=== PATIENT | female | born 1965 | race Caucasian/White ===

== ENCOUNTER 2025-05-10 11:40 | Outpatient (AMB) | payer OTHER, SELFPAY ==
--- NOTE | 2025-05-10 11:51 | A.OFFPC_ITS ---
Vital Signs 05/10/25 12:01 Height 5 ft 4 in Weight 173 lb BMI 29.7 BP 100/62 Blood Pressure Location Rt brachial Position Sitting Pulse 75 Pulse Source Pulse Oximeter Temp 98.2 F Temp Source Temporal Artery Scan Pulse Oximetry (%) 98 Oxygen Delivery Method Room Air Intake Visit Reasons: weak and tired easily/ pinch nerve in back Intake Note: Lissa presents in the office to establish care. Allergies No Known Allergies Allergy (Verified 05/10/25 11:56) Tobacco use date assessed: 05/10/25 Dental Screening Dental Screen Date: 05/10/25 Did you have a dental visit in the last 12 months?: No Did you have a dental problem in the last 6 months where you did not have access to dental care?: No Was dental information given to patient?: Patient has dentist HPI HPI Comments History of Present Illness Details This is a 59-year-old female with a past medical history of hypertension, hyperlipidemia, prior tobacco use and lumbar degenerative disc disease presenting to establish care. She has multiple concerns today. Her prior medical records have not been received yet. Degenerative disc disease-she had lower back surgery in July 2013 at . Symptoms improved, but she had persistent lower back pain that radiates to the left leg as well as intermittent numbness and tingling in her left leg. Her symptoms have been worse during the past 6 months. Average daily pain is 7/10. In the past she tried acupuncture, lower back injections and physical therapy. She is treating symptoms with soha-tua-glngtdy pain relievers like naproxen. Denies loss of bowel or bladder control or numbness or tingling in the groin. Sometimes left leg feels weak. She endorses left shoulder pain for 3-4 months. She has been doing physical therapy for the last couple months once a week. No improvement. It hurts to lift her arm above her shoulder. She does [employer], and she does not remember a particular injury or trauma. Endorses tension in her neck muscles. When she is lying down at night and holding her phone up her hands and forearms get tingly and she has to reposition. Patient says in general she feels fatigued, and she feels weaker. She gives the example of her arms feeling weak when she carries her groceries inside. She snores. She endorses non restorative sleep and daytime fatigue. Denies witnessed apneic episodes. She has never had a sleep study. She has a history of depression with anxiety. She is on venlafaxine. No alcohol use. Hypertension-treated with losartan 50 mg daily. Blood pressure is soft. Hyperlipidemia-treated with atorvastatin 40 mg daily. No recent dose adjustment. She reports seeing Cardiology a few years ago for an echo and stress test. She has a heart murmur. She believes the tests were okay. She quit smoking 12 years ago. She feels like she can not take a deep breath and she has tightness in her lungs/chest when she is exercising at [employer] (acquired by [employer] in 2014). Denies history of asthma or COPD. Denies chest pain, palpitations and pedal edema. ROS: Constitutional: No unexplained weight loss, fever, chills or night sweats. Eyes: No vision changes, blurry vision, double vision, eye pain Respiratory: No cough, wheezing, hemoptysis or sputum production. See HPI Cardiovascular: See HPI Gastrointestinal: No anorexia, nausea, vomiting or diarrhea. No abdominal pain or blood in stool. Genitourinary: No dysuria, hematuria, urinary frequency. Neurologic: No headache, dizziness, syncope, ataxia or seizures or tremors Musculoskeletal see HPI Hematologic/Lymphatics: No bleeding or bruising. No painful lymph nodes. Skin: No rash or tick bites Psychiatric: No SI/HI. Physical exam: Constitutional: Alert, in no distress. Head: Normocephalic. Neck: Supple, Full range of motion. No lymphadenopathy. No palpable thyroid masses. Respiratory: Clear to auscultation. Cardiovascular: S1 S2 regular. I/ murmur. Gastrointestinal: Abdomen soft, non-tender, non-distended. Normal bowel sounds. No palpable masses. Neurologic: No focal neurological deficits. Symmetric patellar reflexes. Moves all extremities spontaneously. Sensation intact bilaterally. Skin: No rashes or lesions. Musculoskeletal: Empty can maneuver is positive with the left shoulder. Shoulders are nontender to palpation. Abduction with the left shoulder causes pain in is limited,. Cervical spine lumbar spine are nontender to palpation. She has full range of motion of the spine. Negative straight leg raises bilaterally. Left lower extremity strength 4/5, right lower extremity strength 5/5. Extremities: Warm and well perfused. No clubbing, cyanosis or edema. Intact peripheral pulses bilaterally. Psychiatric: Normal mood and affect [facility] Medical History (Updated 05/10/25 @ 12:42 by TAJ Gill) Essential hypertension Hyperlipidemia Multiple joint pain Dyspnea Depression with anxiety Non-restorative sleep Fatigue Cervicalgia Lumbar radiculopathy Left shoulder pain Chest tightness Family History (Updated 05/10/25 @ 12:00 by Kelsey Fan MA) Brother Alcoholism Other Substance abuse Social History (Updated 05/10/25 @ 12:01 by Kelsey Fan MA) Housing: House Alcohol intake: current Patient Tobacco Use Status: Former Tobacco user Cigarette Packs Per Day: 1 Cigarettes Per Day: 10 Years Smoked: 12 e-Cigarette/Vaping Use: Never Used Second Hand Smoke Exposure: No service: No Current occupational status: employed Current occupation: [employer] Current occupational exposures/hazards: Yes Cognitive needs: No Hearing needs: No Vision needs: No Questionnaire PHQ-9 Over the last 2 weeks, how often have you been bothered by any of the following problems? 1. Little interest or pleasure in doing things: more than half the days 2. Feeling down, depressed, or hopeless: more than half the days 3. Trouble falling or staying asleep, or sleeping too much: more than half the days 4. Feeling tired or having little energy: more than half the days 5. Poor appetite or overeating: more than half the days 6. Feeling bad about yourself - or that you are a failure or have let yourself or your family down: more than half the days 7. Trouble concentrating on things, such as reading the newspaper or watching television: more than half the days 8. Moving or speaking so slowly that other people could have noticed. Or the opposite - being so fidgety or restless that you have been moving around a lot more than usual: not at all 9. Thoughts that you would be better off or of hurting yourself in some way: not at all Total score: 14 Depression Screening Interpretation: Positive Depression Screening Done: Yes 82761 - PHQ-9 Billing: Yes Source: Developed by Drs. Bc Hyatt, Tara Burch, Jack Dominguez and colleagues, with an educational bobbi from [employer]. Thrive Questionnaire Date Thrive assessed: 05/10/25 I am a: Patient What is your living situation today?: I have a steady place to live Within the past 12 months, did the food you bought not last and you didn't have the money to get more?: Never true Within the past 12 months, did you worry whether your food would run out before you got money to buy more?: Never true Do you have trouble paying for medicines?: No Do you have trouble getting transportation to medical appointments?: No Do you have trouble paying your heating and electricity bill?: No Do you have trouble taking care of your child, family member or friend?: No Do you have trouble with day-to-day activities such as bathing, preparing meals, shopping, managing finances, etc.?: No Are you currently unemployed and looking for a job?: No Are you interested in more education?: No Please select the resources that you would like help with: None Currently or been in a relationship where the following occur: No concerns reported THRIVE Score: 0 AUDIT C Alcohol Use Questionnaire (AUDIT-C) 1. How often do you have a drink containing alcohol?: Monthly or less 2. How many drinks containing alcohol do you have on a typical day when you are drinking?: 1 or 2 3. How often do you have six or more drinks on one occasion?: Never Total Score: 1 SOPHIA-7 AMB Questionnaire SOPHIA-7 Date SOPHIA - 7 assessed: 05/10/25 Feeling nervous, anxious, or on edge: 0 = Not at all Not being able to stop or control worryin = Several days Worrying too much about different things: 1 = Several days Trouble relaxin = Not at all Being so restless that it is hard to sit still: 0 = Not at all Becoming easily annoyed or irritable: 1 = Several days Feeling afraid as if something awful might happen: 1 = Several days Total SOPHIA-7 score (0-4 normal; 5-9 mild; 10-14 moderate; 15-21 severe): 4 Source: Developed by Drs. Bc Hyatt, Tara Burch, Jack Dominguez and colleagues, with an educational bobbi from [employer]. Physical exam (Primary Care) Vital Signs: Last Vital Signs Temp 98.2 F 05/10/25 12:01 Pulse 75 05/10/25 12:01 BP 100/62 05/10/25 12:01 Pulse Ox 98 05/10/25 12:01 Oxygen Delivery Method Room Air 05/10/25 12:01 BMI result Body Mass Index 29.7 Tobacco/Smoking Status: Tobacco use Status Tobacco use date assessed 05/10/25 05/10/25 12:07 Patient Tobacco Use Status Former Tobacco user 05/10/25 12:07 e-Cigarette/Vaping Use Never Used 05/10/25 12:07 PHQ-9: PHQ-9 Score PHQ-9: Total score 14 05/10/25 12:14 Depression Screening Interpretation: Positive Thrive Assessment: Date of Thrive Assessment Date Thrive assessed 05/10/25 05/10/25 11:53 Currently or been in a relationship where the following occur: No concerns reported Office Procedures EKG Details: EKG shows normal sinus rhythm, possible right bundle branch block, nonspecific ST abnormality, 68 beats per minute 83647-[id number], Complete Coding Level of Care Code New Pt Level 5 (57974) Complex EM visit Add On G2211 Diagnoses Chest tightness R07.89 Left shoulder pain M25.512 Lumbar radiculopathy M54.16 Cervicalgia M54.2 Fatigue R53.83 Non-restorative sleep G47.8 Depression with anxiety F41.8 Dyspnea R06.00 Multiple joint pain M25.50 Essential hypertension I10 CPT Codes EKG - CPT: 36356-[id number], Complete ([id number]) Additional Codes PHQ-9 - 57608 - PHQ-9 Billing: Yes ([id number]) Time Spent (min) 70 Comment Direct patient care, completing documentation, placing orders, updating chart Assessment & Plan Assessment & Plan (1) Chest tightness: Code(s): R07.89 - Other chest pain Category: Medical Plan: Request prior workup and notes from [facility]. She associates this with feeling like she can not take a deep breath while exercising. History of smoking. Proceed with PFT and trial of albuterol EKG with no acute ischemic findings. (2) Left shoulder pain: Code(s): M25.512 - Pain in left shoulder Category: Medical Plan: Left shoulder pain with positive empty can maneuver and weakness of the left shoulder. Proceed with x-ray and MRI for suspicion of rotator cuff tendinop athy. (3) Lumbar radiculopathy: Code(s): M54.16 - Radiculopathy, lumbar region Category: Medical Plan: Worsening radicular symptoms with history of lower back surgery in 2014. Ordered x-ray and MRI of the lumbar spine. (4) Cervicalgia: Code(s): M54.2 - Cervicalgia Category: Medical Plan: X-ray ordered. (5) Fatigue: Code(s): R53.83 - Other fatigue Category: Medical Plan: Check fatigue labs. Autoimmune labs ordered given multiple joint pains. (6) Non-restorative sleep: Code(s): G47.8 - Other sleep disorders Category: Medical Plan: Sleep study requested. (7) Depression with anxiety: Code(s): F41.8 - Other specified anxiety disorders Category: Medical Plan: Continue venlafaxine. Refer to Psychology. (8) Dyspnea: Code(s): R06.00 - Dyspnea, unspecified Category: Medical (9) Multiple joint pain: Code(s): M25.50 - Pain in unspecified joint Category: Medical Plan: Differential reviewed with the patient including polymyalgia rheumatica, osteoarthritis, rheumatoid arthritis, Lyme disease, vitamin-D deficiency. Check labs. (10) Essential hypertension: Code(s): I10 - Essential (primary) hypertension Category: Medical Plan: Reduce losartan to 25 mg daily. Plan Follow up in 4-6 weeks. Orders: Orders AMB EKG-In Office Today R07.89 - Other chest pain XR lumbar spine 2-3V Today E78.5 - Hyperlipidemia, unspecified, I10 - Essential (primary) hypertension, M25.50 - Pain in unspecified joint, M54.16 - Radiculopathy, lumbar region, R53.83 - Other fatigue XR cervical spine 4V Today E78.5 - Hyperlipidemia, unspecified, I10 - Essential (primary) hypertension, M25.50 - Pain in unspecified joint, M54.2 - Cervicalgia, R53.83 - Other fatigue MR lumbar spine wo con Today E78.5 - Hyperlipidemia, unspecified, I10 - Essential (primary) hypertension, M25.50 - Pain in unspecified joint, M54.16 - Radiculopathy, lumbar region, R53.83 - Other fatigue Vitamin D 25-OH (D2 and D3) Today E78.5 - Hyperlipidemia, unspecified, I10 - Essential (primary) hypertension, M25.50 - Pain in unspecified joint, M85.80 - Other specified disorders of bone density and structure, unspecified site, R53.83 - Other fatigue Lipid Panel Today E78.5 - Hyperlipidemia, unspecified, I10 - Essential (primary) hypertension, M25.50 - Pain in unspecified joint, R53.83 - Other fatigue Comprehensive Met. Panel Today E78.5 - Hyperlipidemia, unspecified, I10 - Essential (primary) hypertension, M25.50 - Pain in unspecified joint, R53.83 - Other fatigue Magnesium Today E78.5 - Hyperlipidemia, unspecified, I10 - Essential (primary) hypertension, M25.50 - Pain in unspecified joint, R53.83 - Other fatigue Complete Blood Count Auto Diff Today E78.5 - Hyperlipidemia, unspecified, I10 - Essential (primary) hypertension, M25.50 - Pain in unspecified joint, R53.83 - Other fatigue UA w Microscopic Today E78.5 - Hyperlipidemia, unspecified, I10 - Essential (primary) hypertension, M25.50 - Pain in unspecified joint, R39.9 - Unspecified symptoms and signs involving the genitourinary system, R53.83 - Other fatigue Rheumatoid Factor Today E78.5 - Hyperlipidemia, unspecified, I10 - Essential (primary) hypertension, M25.50 - Pain in unspecified joint, R53.83 - Other fatigue Creatine Kinase Total Today R53.83 - Other fatigue XR shoulder LT min 2V Today E78.5 - Hyperlipidemia, unspecified, I10 - Essential (primary) hypertension, M25.50 - Pain in unspecified joint, M25.512 - Pain in left shoulder, R53.83 - Other fatigue MR shoulder LT wo con Today E78.5 - Hyperlipidemia, unspecified, I10 - Essential (primary) hypertension, M25.50 - Pain in unspecified joint, M25.512 - Pain in left shoulder, R53.83 - Other fatigue RT home sleep study Today E78.5 - Hyperlipidemia, unspecified, G47.8 - Other sleep disorders, I10 - Essential (primary) hypertension, M25.50 - Pain in unspecified joint, R53.83 - Other fatigue PFT pulmonary function test Today E78.5 - Hyperlipidemia, unspecified, I10 - Essential (primary) hypertension, M25.50 - Pain in unspecified joint, R06.00 - Dyspnea, unspecified, R53.83 - Other fatigue TSH reflex Free T4 Today E78.5 - Hyperlipidemia, unspecified, I10 - Essential (primary) hypertension, M25.50 - Pain in unspecified joint, M25.512 - Pain in left shoulder, M54.16 - Radiculopathy, lumbar region, R53.83 - Other fatigue TAYE Reflex Titer and Pattern Today E78.5 - Hyperlipidemia, unspecified, I10 - Essential (primary) hypertension, M25.50 - Pain in unspecified joint, R53.83 - Other fatigue Erythrocyte Sedimentation Rate Today E78.5 - Hyperlipidemia, unspecified, I10 - Essential (primary) hypertension, M25.50 - Pain in unspecified joint, R53.83 - Other fatigue C Reactive Protein Today E78.5 - Hyperlipidemia, unspecified, I10 - Essential (primary) hypertension, M25.50 - Pain in unspecified joint, R53.83 - Other fatigue Lyme IgG/IgM w/reflex to WB Today E78.5 - Hyperlipidemia, unspecified, I10 - Essential (primary) hypertension, M25.50 - Pain in unspecified joint, R53.83 - Other fatigue Vitamin B12 Today E78.5 - Hyperlipidemia, unspecified, I10 - Essential (primary) hypertension, M25.50 - Pain in unspecified joint, R53.83 - Other fatigue, Z91.89 - Other specified personal risk factors, not elsewhere classified Referrals Psychology Referral E78.5 - Hyperlipidemia, unspecified, F41.8 - Other specified anxiety disorders, I10 - Essential (primary) hypertension, M25.50 - Pain in unspecified joint, R53.83 - Other fatigue Medications: New albuterol sulfate 90 mcg/actuation Two puffs every 4 hours as needed for shortness of breath and 15 minutes prior to vigorous activity 2 inhalations inhalation .every 4 hours PRN 8.5 grams 0RF shortness of breath or wheezing 30 days
[2025-05-10 12:01] VITALS: BP 100/62; PULSE 75; TEMP 36.8; O2SAT 98; BMI 29.7
--- OUTSIDE RECORDS SUMMARY | 2025-05-10 12:16 | XMS_ITS | Patient Health Record ---
Author Organization [facility] [address] Address [address] [place] [address] Care Team Providers Care Technology Lab Teacher Name Role Phone ABHILASH JOSUE Unavailable [phone] JOLANTA GRACE Unavailable [phone] Allergies No Known Allergies Reason For Referral No Information Medications Medication SIG (Take, Route, Frequency, Duration) Notes Start Date End Date Status Zepbound 2.5 MG/0.5ML 0.5 mL Subcutaneou s once weekly; Duration: 30 days 07/13/2024 Active Venlafaxine HCl ER 225 MG 1 capsule with food Orally Once a day Active Social History Tobacco Use: Social History Observation Description Date Details (start date - stop date) Never Smoker NA - NA Tobacco Use/Smoking Question Answer Notes Are you a nonsmoker Section Notes: 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 at [facility] Problems Problem Type SNOMED Code ICD Code Onset Dates Problem Status W/U Status Risk Notes Problem Obesity (710597483) Other obesity (E66.8) Active confirmed Problem Hyperlipidaemia (36927122) Hyperlipidemia, unspecified hyperlipidemia type (E78.5) Active confirmed Problem Essential hypertension (78517997) Hypertension, unspecified type (I10) Active confirmed Problem Obesity (069064821) Obesity (BMI 30-39.9) (E66.9) Active confirmed Problem Body mass index 30.00 to 34.99 (387699176910811) Body mass index [BMI] 33.0-33.9, adult (Z68.33) Active confirmed Problem Obese class I (996542017395801) BMI 33.0-33.9,adult (Z68.33) Active confirmed Problem Body mass index 30.00 to 34.99 (677228455399545) BMI 31.0-31.9,adult (Z68.31) Active confirmed Problem Body mass index 30+ - obesity (250818306) BMI 30.0-30.9,adult (Z68.30) Active confirmed Vital Signs Heart Rate 80 /min 07/13/2024 Blood pressure diastolic 82 mm Hg 07/13/2024 Oximetry 97 % 07/13/2024 Height 63 in 07/13/2024 Blood pressure systolic 134 mm Hg 07/13/2024 Weight 172.0 lbs 07/13/2024 BMI 30.47 kg/m2 07/13/2024 Encounters Encounter Location Date Provider Diagnosis [facility] [address] [place] [address] 05/31/2024 ABHILASH JOSUE Overweight E66.3 ; B PR 29.0-29.9,adult Z68.29 ; Hypertension, unspecified type I10 ; Hyperlipidemia, unspecified hyperlipidemia type E78.5 and Depression, unspecified depression type F32.A [facility] [address] [place] [address] 07/13/2024 JOLANTA GRACE Obesity (BMI 30-39.9 ) E66.9 ; BMI 30.0-30.9,adult Z68.30 ; Hypertension, unspecified type I10 and Hyperlipidemia, unspecified hyperlipidemia type E78.5 [facility] [address] [facility] [address] [place] [address] 05/10/2024 ABHILASH JOSUE [facility] [address] [facility] [address] [place] [address] 08/18/2024 ABHILASH JOSUE Assessments Encounter Date Diagnosis (ICD Code) Assessment Notes Treatment Notes Treatment Clinical Notes Section Notes 05/31/2024 Overweight (ICD-10 - E66.3) Ailyn Is a 57-year-old female who present the office for weight management f/u. : weight 188.6, BMI 33.41- extensively educated on diet, exercise. SECA reviewed, [facility] provided. Patient provided with educational handouts or guarding high-protein foods, low carbohydrate snacks, healthy fats, as well as a check sheet to focus on lifestyle modifications and logging food. Patient states that she does exercise pretty regularly. Educated on the importance of increasing her water intake. She has multiple factors regarding her diet that she can improve on, but will focus on 1-2 factors over the next two weeks, and follow-up fairly closely. Patient will work on decreasing her take-out consumption as she quite often eats out including pizza, grinders. Patient encouraged to increase her vegetable intake as well as focuss on limiting her danishes/muffins for breakfast and eat more protein for breakfast including eggs, grain toast with peanut butter/banana. Patient does not eat much protein throughout the day, and focuses most on carbohydrates. She does state that she has IBS, and that limits the consumption of multiple foods including vegetables, yogurt, egg whites. 03/11/23: weight 189.2, BMI 33.51- patient still struggling with lifestyle modifications. Has been improving decreasing carbohydrates for breakfast, but is still struggling to be consistent. Patient is eating a lot of carbohydrates, mac & cheese, pasta, Bellavita, cookies, swiss etc. Educated to increase colors in her diet, although patient's diet is very limited. She does present to the office of the lifts of food that she eats which contains approximately 30 foods with minimal fruit/minimal vegetables. Educated on the importance of trial and ear when it comes to foods. She is in the process of joining a [employer] gym, and working with her friend to experiment with different foods. 05/07/2023: Weight 183.3, BMI 32.47. Patient congratulated on efforts. Continues to lose consistent weight loss with lifestyle modifications, but is interested in weight management medications. Did discuss compounded semaglutide versus Saxenda versus Wegovy, she is interested in compounded semaglutide. We will start at 0.25 mg today, and she will follow-up every week for nursing visit, and I will see patient in the next 4 weeks. Did discuss proper use, and side effects of medication. 06/07/2023: Weight 179.2, BMI 31.74. Patient congratulated on effort. Has been continue to lose weight. Taking compounded semaglutide 0.25 mg with compliance. Is interested in increasing to 0.5 mg. Patient does endorse occasional nausea the day after she gets the injection, but it subsides. She also does state that she feels like she has more moodiness that used to be more controlled with her venlafaxine. We did have an extensive conversation regarding discontinuing semaglutide to see if that improves the moodiness but patient did not want to do this, and would prefer to contact her primary care provider on altering venlafaxine dose/switching medication etc. She declines any SI/HI but did educate extensively on return to office protocol/resources for patient to use. Continue to educate on the importance of lifestyle as patient is still eating out pretty consistently. Also discussed exercise that patient can tolerate as she is having some concern with left elbow pain. This is being followed up by PCP. 07/06/2023: Weight 178.4 pounds, BMI 31.6. Patient congratulated. Body composition reviewed showing only 1 pound loss, but patient has lost 3 pounds of fat, and gained 2 pounds of water weight. Encouraged to continue with high-protein, vegetables, and increasing water intake. Patient has goals to exercise with her friends that are holding her accountable over the next month, as well as go out and listen to some music live to bring more coco into her life. She is in the process of also establishing with psychiatry she is going to discuss this with her as well. 08/03/2023: Weight 175.6 pounds, BMI 31.1. Patient is lost few pounds since last visit, congratulated on effort. Overall, she is pleased. Taking semaglutide 0.5 mg with compliance, without any side effects. Would like to continue with 0.5 mg but is potentially interested in increasing to 1 mg at next visit. Educated on the importance of lifestyle. Patient has been spending more time with friends, and going to the gym with colleagues that are holding her accountable, and recently went to the [employer]. 09/13/23: Weight 173, BMI 30.66. SECA reviewed with patient - 3 lb fat loss, 1 lb muscle gain, 0.3 visceral fat loss. Patient has been on sema 1mg x 4 weeks without side effects. She reports her clothing fitting differently as well as reduction in appetite and snacking. She has been going to the gym or walking four times a week with friends/colleagues to hold her accountable. She was encouraged to increase her protein intake, incorporate more fruits and vegetables, drink more water. Recommended seeing a last sorter for help in incorporating more whole foods and improving her overall nutrition status, but the patient declines at this time, stating that won't change anything . Continue semaglutide 1mg weekly, follow up in 4 weeks. 11/03/2022: Weight 170, BMI 30.22. SECA reviewed with patient - 1 lb fat loss, 1 lb mucle loss, visceral fat loss. Patient has been on semaglutide 1mg x 10 weeks without side effects. She reports that her clothing is fitting her better with reduced snacking throughout the day. She has been participating in [employer] with friends at least two times per week. She has been working to increase her protein and water intake and is encouraged to continue doing so. Planning to continue semaglutide 1mg weekly and will follow up in 4 weeks. Submit for Wegovy 1 mg. 12/16/2023: Weight 168.7, BMI 29.88. Patient graduated on effort, body composition reviewed showing fat loss, muscle increase. Patient's very pleased with progress overall. Continue with Wegovy, will increase to 1.7 mg. Taking with compliance, no side effects. Patient is very pleased with progress, has been consistent with exercise, holding accountability with friends at the gym. 04/17/2024: Weight 165.0, BMI 29.23. Patient graduated on effort. Patient admits to being off Wegovy 1.7mg for 3 weeks - 1 month d/t being denied by insurance. Explained to patient that the prior authorization was sent on April 01 and the insurance company has 4 weeks to either confirm or deny the request. Body scan revealed predominantly fat mass loss with 1 pound of muscle mass loss. Patient is a little discouraged because she thought she lost more weight. Consider starting at 1 mg of Wegovy due to SE profile and not being on medication for 1 month. Will f/u in 4-6 weeks. 05/31/2024: Weight 167, BMI 29: Weight up 2 pounds since last visit, declines body scan, but will get next visit. States is a financial concern, did state that we can leave it for her if she needs. Could not get Wegovy due to her not losing enough weight on the medication, insurance denied it. Will trial Contrave. Educated on proper use, proper tapering, side effects. Provided with sample, sent to [facility]. Follow-up in 4 to 6 weeks. #Hypertension: blood pressure stable in office today. Patient states she is not taking losartan at this time. #Hyperlipidemia: patient should continue atorvastatin 40 mg #Depression: patient should continueVenlafaxine 150 mg Patient will follow-up in 4-6 weeks, sooner as needed. Time spent with patient 30 minutes with greater than 50% on care coordination and patient education. All patient questions answered in office today. Patient should call the office in the meantime with any questions or concerns. Case discussed with collaborating physician Mars Thompson who reviewed the assessment and plan. Chart, medications, labs, vital signs reviewed. Dictation was accomplished with the use of [employer] voice recognition software, prone to medical misidentifications and grammatical errors. This is unintentional and the practitioner does try to identify and correct these, but some could still be present. Please do not hesitate to contact practitioner for clarification. 07/13/2024 Obesity (BMI 30-39.9) (ICD-10 - E66.9) Ailyn Is a 57-year-old female who present the office for weight management f/u. : weight 188.6, BMI 33.41- extensively educated on diet, exercise. SECA reviewed, [facility] provided. Patient provided with educational handouts or guarding high-protein foods, low carbohydrate snacks, healthy fats, as well as a check sheet to focus on lifestyle modifications and logging food. Patient states that she does exercise pretty regularly. Educated on the importance of increasing her water intake. She has multiple factors regarding her diet that she can improve on, but will focus on 1-2 factors over the next two weeks, and follow-up fairly closely. Patient will work on decreasing her take-out consumption as she quite often eats out including pizza, grinders. Patient encouraged to increase her vegetable intake as well as focuss on limiting her danishes/muffins for breakfast and eat more protein for breakfast including eggs, grain toast with peanut butter/banana. Patient does not eat much protein throughout the day, and focuses most on carbohydrates. She does state that she has IBS, and that limits the consumption of multiple foods including vegetables, yogurt, egg whites. 03/11/23: weight 189.2, BMI 33.51- patient still struggling with lifestyle modifications. Has been improving decreasing carbohydrates for breakfast, but is still struggling to be consistent. Patient is eating a lot of carbohydrates, mac & cheese, pasta, Bellavita, cookies, swiss etc. Educated to increase colors in her diet, although patient's diet is very limited. She does present to the office of the lifts of food that she eats which contains approximately 30 foods with minimal fruit/minimal vegetables. Educated on the importance of trial and ear when it comes to foods. She is in the process of joining a [employer] gym, and working with her friend to experiment with different foods. 05/07/2023: Weight 183.3, BMI 32.47. Patient congratulated on efforts. Continues to lose consistent weight loss with lifestyle modifications, but is interested in weight management medications. Did discuss compounded semaglutide versus Saxenda versus Wegovy, she is interested in compounded semaglutide. We will start at 0.25 mg today, and she will follow-up every week for nursing visit, and I will see patient in the next 4 weeks. Did discuss proper use, and side effects of medication. 06/07/2023: Weight 179.2, BMI 31.74. Patient congratulated on effort. Has been continue to lose weight. Taking compounded semaglutide 0.25 mg with compliance. Is interested in increasing to 0.5 mg. Patient does endorse occasional nausea the day after she gets the injection, but it subsides. She also does state that she feels like she has more moodiness that used to be more controlled with her venlafaxine. We did have an extensive conversation regarding discontinuing semaglutide to see if that improves the moodiness but patient did not want to do this, and would prefer to contact her primary care provider on altering venlafaxine dose/switching medication etc. She declines any SI/HI but did educate extensively on return to office protocol/resources for patient to use. Continue to educate on the importance of lifestyle as patient is still eating out pretty consistently. Also discussed exercise that patient can tolerate as she is having some concern with left elbow pain. This is being followed up by PCP. 07/06/2023: Weight 178.4 pounds, BMI 31.6. Patient congratulated. Body composition reviewed showing only 1 pound loss, but patient has lost 3 pounds of fat, and gained 2 pounds of water weight. Encouraged to continue with high-protein, vegetables, and increasing water intake. Patient has goals to exercise with her friends that are holding her accountable over the next month, as well as go out and listen to some music live to bring more coco into her life. She is in the process of also establishing with psychiatry she is going to discuss this with her as well. 08/03/2023: Weight 175.6 pounds, BMI 31.1. Patient is lost few pounds since last visit, congratulated on effort. Overall, she is pleased. Taking semaglutide 0.5 mg with compliance, without any side effects. Would like to continue with 0.5 mg but is potentially interested in increasing to 1 mg at next visit. Educated on the importance of lifestyle. Patient has been spending more time with friends, and going to the gym with colleagues that are holding her accountable, and recently went to the [employer]. 09/13/23: Weight 173, BMI 30.66. SECA reviewed with patient - 3 lb fat loss, 1 lb muscle gain, 0.3 visceral fat loss. Patient has been on sema 1mg x 4 weeks without side effects. She reports her clothing fitting differently as well as reduction in appetite and snacking. She has been going to the gym or walking four times a week with friends/colleagues to hold her accountable. She was encouraged to increase her protein intake, incorporate more fruits and vegetables, drink more water. Recommended seeing a last sorter for help in incorporating more whole foods and improving her overall nutrition status, but the patient declines at this time, stating that won't change anything . Continue semaglutide 1mg weekly, follow up in 4 weeks. 11/03/2022: Weight 170, BMI 30.22. SECA reviewed with patient - 1 lb fat loss, 1 lb mucle loss, visceral fat loss. Patient has been on semaglutide 1mg x 10 weeks without side effects. She reports that her clothing is fitting her better with reduced snacking throughout the day. She has been participating in [employer] with friends at least two times per week. She has been working to increase her protein and water intake and is encouraged to continue doing so. Planning to continue semaglutide 1mg weekly and will follow up in 4 weeks. Submit for Wegovy 1 mg. 12/16/2023: Weight 168.7, BMI 29.88. Patient graduated on effort, body composition reviewed showing fat loss, muscle increase. Patient's very pleased with progress overall. Continue with Wegovy, will increase to 1.7 mg. Taking with compliance, no side effects. Patient is very pleased with progress, has been consistent with exercise, holding accountability with friends at the gym. 04/17/2024: Weight 165.0, BMI 29.23. Patient graduated on effort. Patient admits to being off Wegovy 1.7mg for 3 weeks - 1 month d/t being denied by insurance. Explained to patient that the prior authorization was sent on April 01 and the insurance company has 4 weeks to either confirm or deny the request. Body scan revealed predominantly fat mass loss with 1 pound of muscle mass loss. Patient is a little discouraged because she thought she lost more weight. Consider starting at 1 mg of Wegovy due to SE profile and not being on medication for 1 month. Will f/u in 4-6 weeks. 05/31/2024: Weight 167, BMI 29: Weight up 2 pounds since last visit, declines body scan, but will get next visit. States is a financial concern, did state that we can leave it for her if she needs. Could not get Wegovy due to her not losing enough weight on the medication, insurance denied it. Will trial Contrave. Educated on proper use, proper tapering, side effects. Provided with sample, sent to [employer] [employer]. Follow-up in 4 to 6 weeks. 07/13/24: Patient has personally discontinued the Contrave since last visit. Reports not noticing any weight loss and feeling more hungry in the morning. Discussed how Wegovy was declined by insurrance. Discussed our options of submitting for Zepbound, but no guarantee this will be approved either. Offered the option of switching to compound semaglutide injections, but patient declined due to cost expense. Plan to submit for Zepbound and continue without medication, focusing of lifestyle modifications. Discussed a diet of 1200 calories to be in a deficit and promote weight loss. Discussed the importance of decreasing fat mass while also increasing skeletal muscle mass. Discussed importance of high protein diet. Patient verbalized understanding. Plan to follow up in 4-6 weeks. #Hypertension: blood pressure stable in office today. Patient states she is not taking losartan at this time. #Hyperlipidemia: patient should continue atorvastatin 40 mg #Depression: patient should continueVenlafaxine 150 mg Patient will follow-up in 4-6 weeks, sooner as needed. Time spent with patient 30 minutes with greater than 50% on care coordination and patient education. All patient questions answered in office today. Patient should call the office in the meantime with any questions or concerns. Case discussed with collaborating physician Mars Thompson who reviewed the assessment and plan. Chart, medications, labs, vital signs reviewed. Dictation was accomplished with the use of [employer] voice recognition software, prone to medical misidentifications and grammatical errors. This is unintentional and the practitioner does try to identify and correct these, but some could still be present. Please do not hesitate to contact practitioner for clarification. 07/13/2024 BMI 30.0-30.9,adult (ICD-10 - Z68.30) Ailyn Is a 57-year-old female who present the office for weight management f/u. : weight 188.6, BMI 33.41- extensively educated on diet, exercise. [facility], [facility] provided. Patient provided with educational handouts or guarding high-protein foods, low carbohydrate snacks, healthy fats, as well as a check sheet to focus on lifestyle modifications and logging food. Patient states that she does exercise pretty regularly. Educated on the importance of increasing her water intake. She has multiple factors regarding her diet that she can improve on, but will focus on 1-2 factors over the next two weeks, and follow-up fairly closely. Patient will work on decreasing her take-out consumption as she quite often eats out including pizza, grinders. Patient encouraged to increase her vegetable intake as well as focuss on limiting her danishes/muffins for breakfast and eat more protein for breakfast including eggs, grain toast with peanut butter/banana. Patient does not eat much protein throughout the day, and focuses most on carbohydrates. She does state that she has IBS, and that limits the consumption of multiple foods including vegetables, yogurt, egg whites. 03/11/23: weight 189.2, BMI 33.51- patient still struggling with lifestyle modifications. Has been improving decreasing carbohydrates for breakfast, but is still struggling to be consistent. Patient is eating a lot of carbohydrates, mac & cheese, pasta, Bellavita, cookies, swiss etc. Educated to increase colors in her diet, although patient's diet is very limited. She does present to the office of the lifts of food that she eats which contains approximately 30 foods with minimal fruit/minimal vegetables. Educated on the importance of trial and ear when it comes to foods. She is in the process of joining a [employer] gym, and working with her friend to experiment with different foods. 05/07/2023: Weight 183.3, BMI 32.47. Patient congratulated on efforts. Continues to lose consistent weight loss with lifestyle modifications, but is interested in weight management medications. Did discuss compounded semaglutide versus Saxenda versus Wegovy, she is interested in compounded semaglutide. We will start at 0.25 mg today, and she will follow-up every week for nursing visit, and I will see patient in the next 4 weeks. Did discuss proper use, and side effects of medication. 06/07/2023: Weight 179.2, BMI 31.74. Patient congratulated on effort. Has been continue to lose weight. Taking compounded semaglutide 0.25 mg with compliance. Is interested in increasing to 0.5 mg. Patient does endorse occasional nausea the day after she gets the injection, but it subsides. She also does state that she feels like she has more moodiness that used to be more controlled with her venlafaxine. We did have an extensive conversation regarding discontinuing semaglutide to see if that improves the moodiness but patient did not want to do this, and would prefer to contact her primary care provider on altering venlafaxine dose/switching medication etc. She declines any SI/HI but did educate extensively on return to office protocol/resources for patient to use. Continue to educate on the importance of lifestyle as patient is still eating out pretty consistently. Also discussed exercise that patient can tolerate as she is having some concern with left elbow pain. This is being followed up by PCP. 07/06/2023: Weight 178.4 pounds, BMI 31.6. Patient congratulated. Body composition reviewed showing only 1 pound loss, but patient has lost 3 pounds of fat, and gained 2 pounds of water weight. Encouraged to continue with high-protein, vegetables, and increasing water intake. Patient has goals to exercise with her friends that are holding her accountable over the next month, as well as go out and listen to some music live to bring more coco into her life. She is in the process of also establishing with psychiatry she is going to discuss this with her as well. 08/03/2023: Weight 175.6 pounds, BMI 31.1. Patient is lost few pounds since last visit, congratulated on effort. Overall, she is pleased. Taking semaglutide 0.5 mg with compliance, without any side effects. Would like to continue with 0.5 mg but is potentially interested in increasing to 1 mg at next visit. Educated on the importance of lifestyle. Patient has been spending more time with friends, and going to the gym with colleagues that are holding her accountable, and recently went to the [employer]. 09/13/23: Weight 173, BMI 30.66. SECA reviewed with patient - 3 lb fat loss, 1 lb muscle gain, 0.3 visceral fat loss. Patient has been on sema 1mg x 4 weeks without side effects. She reports her clothing fitting differently as well as reduction in appetite and snacking. She has been going to the gym or walking four times a week with friends/colleagues to hold her accountable. She was encouraged to increase her protein intake, incorporate more fruits and vegetables, drink more water. Recommended seeing a last sorter for help in incorporating more whole foods and improving her overall nutrition status, but the patient declines at this time, stating that won't change anything . Continue semaglutide 1mg weekly, follow up in 4 weeks. 11/03/2022: Weight 170, BMI 30.22. SECA reviewed with patient - 1 lb fat loss, 1 lb mucle loss, visceral fat loss. Patient has been on semaglutide 1mg x 10 weeks without side effects. She reports that her clothing is fitting her better with reduced snacking throughout the day. She has been participating in Cross[employer] with friends at least two times per week. She has been working to increase her protein and water intake and is encouraged to continue doing so. Planning to continue semaglutide 1mg weekly and will follow up in 4 weeks. Submit for Wegovy 1 mg. 12/16/2023: Weight 168.7, BMI 29.88. Patient graduated on effort, body composition reviewed showing fat loss, muscle increase. Patient's very pleased with progress overall. Continue with Wegovy, will increase to 1.7 mg. Taking with compliance, no side effects. Patient is very pleased with progress, has been consistent with exercise, holding accountability with friends at the gym. 04/17/2024: Weight 165.0, BMI 29.23. Patient graduated on effort. Patient admits to being off Wegovy 1.7mg for 3 weeks - 1 month d/t being denied by insurance. Explained to patient that the prior authorization was sent on April 01 and the insurance company has 4 weeks to either confirm or deny the request. Body scan revealed predominantly fat mass loss with 1 pound of muscle mass loss. Patient is a little discouraged because she thought she lost more weight. Consider starting at 1 mg of Wegovy due to SE profile and not being on medication for 1 month. Will f/u in 4-6 weeks. 05/31/2024: Weight 167, BMI 29: Weight up 2 pounds since last visit, declines body scan, but will get next visit. States is a financial concern, did state that we can leave it for her if she needs. Could not get Wegovy due to her not losing enough weight on the medication, insurance denied it. Will trial Contrave. Educated on proper use, proper tapering, side effects. Provided with sample, sent to [facility]. Follow-up in 4 to 6 weeks. 07/13/24: Patient has personally discontinued the Contrave since last visit. Reports not noticing any weight loss and feeling more hungry in the morning. Discussed how Wegovy was declined by insurrance. Discussed our options of submitting for Zepbound, but no guarantee this will be approved either. Offered the option of switching to compound semaglutide injections, but patient declined due to cost expense. Plan to submit for Zepbound and continue without medication, focusing of lifestyle modifications. Discussed a diet of 1200 calories to be in a deficit and promote weight loss. Discussed the importance of decreasing fat mass while also increasing skeletal muscle mass. Discussed importance of high protein diet. Patient verbalized understanding. Plan to follow up in 4-6 weeks. #Hypertension: blood pressure stable in office today. Patient states she is not taking losartan at this time. #Hyperlipidemia: patient should continue atorvastatin 40 mg #Depression: patient should continueVenlafaxine 150 mg Patient will follow-up in 4-6 weeks, sooner as needed. Time spent with patient 30 minutes with greater than 50% on care coordination and patient education. All patient questions answered in office today. Patient should call the office in the meantime with any questions or concerns. Case discussed with collaborating physician Mars Thompson who reviewed the assessment and plan. Chart, medications, labs, vital signs reviewed. Dictation was accomplished with the use of [employer] ([employer]) voice recognition software, prone to medical misidentifications and grammatical errors. This is unintentional and the practitioner does try to identify and correct these, but some could still be present. Please do not hesitate to contact practitioner for clarification. 07/13/2024 Hypertension, unspecified type (ICD-10 - I10) Ailyn Is a 57-year-old female who present the office for weight management f/u. : weight 188.6, BMI 33.41- extensively educated on diet, exercise. SECA reviewed, [facility] provided. Patient provided with educational handouts or guarding high-protein foods, low carbohydrate snacks, healthy fats, as well as a check sheet to focus on lifestyle modifications and logging food. Patient states that she does exercise pretty regularly. Educated on the importance of increasing her water intake. She has multiple factors regarding her diet that she can improve on, but will focus on 1-2 factors over the next two weeks, and follow-up fairly closely. Patient will work on decreasing her take-out consumption as she quite often eats out including pizza, grinders. Patient encouraged to increase her vegetable intake as well as focuss on limiting her danishes/muffins for breakfast and eat more protein for breakfast including eggs, grain toast with peanut butter/banana. Patient does not eat much protein throughout the day, and focuses most on carbohydrates. She does state that she has IBS, and that limits the consumption of multiple foods including vegetables, yogurt, egg whites. 03/11/23: weight 189.2, BMI 33.51- patient still struggling with lifestyle modifications. Has been improving decreasing carbohydrates for breakfast, but is still struggling to be consistent. Patient is eating a lot of carbohydrates, mac & cheese, pasta, Bellavita, cookies, swiss etc. Educated to increase colors in her diet, although patient's diet is very limited. She does present to the office of the lifts of food that she eats which contains approximately 30 foods with minimal fruit/minimal vegetables. Educated on the importance of trial and ear when it comes to foods. She is in the process of joining a [employer] gym, and working with her friend to experiment with different foods. 05/07/2023: Weight 183.3, BMI 32.47. Patient congratulated on efforts. Continues to lose consistent weight loss with lifestyle modifications, but is interested in weight management medications. Did discuss compounded semaglutide versus Saxenda versus Wegovy, she is interested in compounded semaglutide. We will start at 0.25 mg today, and she will follow-up every week for nursing visit, and I will see patient in the next 4 weeks. Did discuss proper use, and side effects of medication. 06/07/2023: Weight 179.2, BMI 31.74. Patient congratulated on effort. Has been continue to lose weight. Taking compounded semaglutide 0.25 mg with compliance. Is interested in increasing to 0.5 mg. Patient does endorse occasional nausea the day after she gets the injection, but it subsides. She also does state that she feels like she has more moodiness that used to be more controlled with her venlafaxine. We did have an extensive conversation regarding discontinuing semaglutide to see if that improves the moodiness but patient did not want to do this, and would prefer to contact her primary care provider on altering venlafaxine dose/switching medication etc. She declines any SI/HI but did educate extensively on return to office protocol/resources for patient to use. Continue to educate on the importance of lifestyle as patient is still eating out pretty consistently. Also discussed exercise that patient can tolerate as she is having some concern with left elbow pain. This is being followed up by PCP. 07/06/2023: Weight 178.4 pounds, BMI 31.6. Patient congratulated. Body composition reviewed showing only 1 pound loss, but patient has lost 3 pounds of fat, and gained 2 pounds of water weight. Encouraged to continue with high-protein, vegetables, and increasing water intake. Patient has goals to exercise with her friends that are holding her accountable over the next month, as well as go out and listen to some music live to bring more coco into her life. She is in the process of also establishing with psychiatry she is going to discuss this with her as well. 08/03/2023: Weight 175.6 pounds, BMI 31.1. Patient is lost few pounds since last visit, congratulated on effort. Overall, she is pleased. Taking semaglutide 0.5 mg with compliance, without any side effects. Would like to continue with 0.5 mg but is potentially interested in increasing to 1 mg at next visit. Educated on the importance of lifestyle. Patient has been spending more time with friends, and going to the gym with colleagues that are holding her accountable, and recently went to the [employer]. 09/13/23: Weight 173, BMI 30.66. SECA reviewed with patient - 3 lb fat loss, 1 lb muscle gain, 0.3 visceral fat loss. Patient has been on sema 1mg x 4 weeks without side effects. She reports her clothing fitting differently as well as reduction in appetite and snacking. She has been going to the gym or walking four times a week with friends/colleagues to hold her accountable. She was encouraged to increase her protein intake, incorporate more fruits and vegetables, drink more water. Recommended seeing a last sorter for help in incorporating more whole foods and improving her overall nutrition status, but the patient declines at this time, stating that won't change anything . Continue semaglutide 1mg weekly, follow up in 4 weeks. 11/03/2022: Weight 170, BMI 30.22. SECA reviewed with patient - 1 lb fat loss, 1 lb mucle loss, visceral fat loss. Patient has been on semaglutide 1mg x 10 weeks without side effects. She reports that her clothing is fitting her better with reduced snacking throughout the day. She has been participating in [employer] with friends at least two times per week. She has been working to increase her protein and water intake and is encouraged to continue doing so. Planning to continue semaglutide 1mg weekly and will follow up in 4 weeks. Submit for Wegovy 1 mg. 12/16/2023: Weight 168.7, BMI 29.88. Patient graduated on effort, body composition reviewed showing fat loss, muscle increase. Patient's very pleased with progress overall. Continue with Wegovy, will increase to 1.7 mg. Taking with compliance, no side effects. Patient is very pleased with progress, has been consistent with exercise, holding accountability with friends at the gym. 04/17/2024: Weight 165.0, BMI 29.23. Patient graduated on effort. Patient admits to being off Wegovy 1.7mg for 3 weeks - 1 month d/t being denied by insurance. Explained to patient that the prior authorization was sent on April 01 and the insurance company has 4 weeks to either confirm or deny the request. Body scan revealed predominantly fat mass loss with 1 pound of muscle mass loss. Patient is a little discouraged because she thought she lost more weight. Consider starting at 1 mg of Wegovy due to SE profile and not being on medication for 1 month. Will f/u in 4-6 weeks. 05/31/2024: Weight 167, BMI 29: Weight up 2 pounds since last visit, declines body scan, but will get next visit. States is a financial concern, did state that we can leave it for her if she needs. Could not get Wegovy due to her not losing enough weight on the medication, insurance denied it. Will trial Contrave. Educated on proper use, proper tapering, side effects. Provided with sample, sent to [facility]. Follow-up in 4 to 6 weeks. 07/13/24: Patient has personally discontinued the Contrave since last visit. Reports not noticing any weight loss and feeling more hungry in the morning. Discussed how Wegovy was declined by insurrance. Discussed our options of submitting for Zepbound, but no guarantee this will be approved either. Offered the option of switching to compound semaglutide injections, but patient declined due to cost expense. Plan to submit for Zepbound and continue without medication, focusing of lifestyle modifications. Discussed a diet of 1200 calories to be in a deficit and promote weight loss. Discussed the importance of decreasing fat mass while also increasing skeletal muscle mass. Discussed importance of high protein diet. Patient verbalized understanding. Plan to follow up in 4-6 weeks. #Hypertension: blood pressure stable in office today. Patient states she is not taking losartan at this time. #Hyperlipidemia: patient should continue atorvastatin 40 mg #Depression: patient should continueVenlafaxine 150 mg Patient will follow-up in 4-6 weeks, sooner as needed. Time spent with patient 30 minutes with greater than 50% on care coordination and patient education. All patient questions answered in office today. Patient should call the office in the meantime with any questions or concerns. Case discussed with collaborating physician Mars Thompson who reviewed the assessment and plan. Chart, medications, labs, vital signs reviewed. Dictation was accomplished with the use of [employer] ([employer]) voice recognition software, prone to medical misidentifications and grammatical errors. This is unintentional and the practitioner does try to identify and correct these, but some could still be present. Please do not hesitate to contact practitioner for clarification. 05/31/2024 BMI 29.0-29.9,adult (ICD-10 - Z68.29) Ailyn Is a 57-year-old female who present the office for weight management f/u. : weight 188.6, BMI 33.41- extensively educated on diet, exercise. ATIF reviewed, [facility] provided. Patient provided with educational handouts or guarding high-protein foods, low carbohydrate snacks, healthy fats, as well as a check sheet to focus on lifestyle modifications and logging food. Patient states that she does exercise pretty regularly. Educated on the importance of increasing her water intake. She has multiple factors regarding her diet that she can improve on, but will focus on 1-2 factors over the next two weeks, and follow-up fairly closely. Patient will work on decreasing her take-out consumption as she quite often eats out including pizza, grinders. Patient encouraged to increase her vegetable intake as well as focuss on limiting her danishes/muffins for breakfast and eat more protein for breakfast including eggs, grain toast with peanut butter/banana. Patient does not eat much protein throughout the day, and focuses most on carbohydrates. She does state that she has IBS, and that limits the consumption of multiple foods including vegetables, yogurt, egg whites. 03/11/23: weight 189.2, BMI 33.51- patient still struggling with lifestyle modifications. Has been improving decreasing carbohydrates for breakfast, but is still struggling to be consistent. Patient is eating a lot of carbohydrates, mac & cheese, pasta, Bellavita, cookies, swiss etc. Educated to increase colors in her diet, although patient's diet is very limited. She does present to the office of the lifts of food that she eats which contains approximately 30 foods with minimal fruit/minimal vegetables. Educated on the importance of trial and ear when it comes to foods. She is in the process of joining a [employer] gym, and working with her friend to experiment with different foods. 05/07/2023: Weight 183.3, BMI 32.47. Patient congratulated on efforts. Continues to lose consistent weight loss with lifestyle modifications, but is interested in weight management medications. Did discuss compounded semaglutide versus Saxenda versus Wegovy, she is interested in compounded semaglutide. We will start at 0.25 mg today, and she will follow-up every week for nursing visit, and I will see patient in the next 4 weeks. Did discuss proper use, and side effects of medication. 06/07/2023: Weight 179.2, BMI 31.74. Patient congratulated on effort. Has been continue to lose weight. Taking compounded semaglutide 0.25 mg with compliance. Is interested in increasing to 0.5 mg. Patient does endorse occasional nausea the day after she gets the injection, but it subsides. She also does state that she feels like she has more moodiness that used to be more controlled with her venlafaxine. We did have an extensive conversation regarding discontinuing semaglutide to see if that improves the moodiness but patient did not want to do this, and would prefer to contact her primary care provider on altering venlafaxine dose/switching medication etc. She declines any SI/HI but did educate extensively on return to office protocol/resources for patient to use. Continue to educate on the importance of lifestyle as patient is still eating out pretty consistently. Also discussed exercise that patient can tolerate as she is having some concern with left elbow pain. This is being followed up by PCP. 07/06/2023: Weight 178.4 pounds, BMI 31.6. Patient congratulated. Body composition reviewed showing only 1 pound loss, but patient has lost 3 pounds of fat, and gained 2 pounds of water weight. Encouraged to continue with high-protein, vegetables, and increasing water intake. Patient has goals to exercise with her friends that are holding her accountable over the next month, as well as go out and listen to some music live to bring more coco into her life. She is in the process of also establishing with psychiatry she is going to discuss this with her as well. 08/03/2023: Weight 175.6 pounds, BMI 31.1. Patient is lost few pounds since last visit, congratulated on effort. Overall, she is pleased. Taking semaglutide 0.5 mg with compliance, without any side effects. Would like to continue with 0.5 mg but is potentially interested in increasing to 1 mg at next visit. Educated on the importance of lifestyle. Patient has been spending more time with friends, and going to the gym with colleagues that are holding her accountable, and recently went to the [employer]. 09/13/23: Weight 173, BMI 30.66. SECA reviewed with patient - 3 lb fat loss, 1 lb muscle gain, 0.3 visceral fat loss. Patient has been on sema 1mg x 4 weeks without side effects. She reports her clothing fitting differently as well as reduction in appetite and snacking. She has been going to the gym or walking four times a week with friends/colleagues to hold her accountable. She was encouraged to increase her protein intake, incorporate more fruits and vegetables, drink more water. Recommended seeing a last sorter for help in incorporating more whole foods and improving her overall nutrition status, but the patient declines at this time, stating that won't change anything . Continue semaglutide 1mg weekly, follow up in 4 weeks. 11/03/2022: Weight 170, BMI 30.22. SECA reviewed with patient - 1 lb fat loss, 1 lb mucle loss, visceral fat loss. Patient has been on semaglutide 1mg x 10 weeks without side effects. She reports that her clothing is fitting her better with reduced snacking throughout the day. She has been participating in [employer] with friends at least two times per week. She has been working to increase her protein and water intake and is encouraged to continue doing so. Planning to continue semaglutide 1mg weekly and will follow up in 4 weeks. Submit for Wegovy 1 mg. 12/16/2023: Weight 168.7, BMI 29.88. Patient graduated on effort, body composition reviewed showing fat loss, muscle increase. Patient's very pleased with progress overall. Continue with Wegovy, will increase to 1.7 mg. Taking with compliance, no side effects. Patient is very pleased with progress, has been consistent with exercise, holding accountability with friends at the gym. 04/17/2024: Weight 165.0, BMI 29.23. Patient graduated on effort. Patient admits to being off Wegovy 1.7mg for 3 weeks - 1 month d/t being denied by insurance. Explained to patient that the prior authorization was sent on April 01 and the insurance company has 4 weeks to either confirm or deny the request. Body scan revealed predominantly fat mass loss with 1 pound of muscle mass loss. Patient is a little discouraged because she thought she lost more weight. Consider starting at 1 mg of Wegovy due to SE profile and not being on medication for 1 month. Will f/u in 4-6 weeks. 05/31/2024: Weight 167, BMI 29: Weight up 2 pounds since last visit, declines body scan, but will get next visit. States is a financial concern, did state that we can leave it for her if she needs. Could not get Wegovy due to her not losing enough weight on the medication, insurance denied it. Will trial Contrave. Educated on proper use, proper tapering, side effects. Provided with sample, sent to [facility]. Follow-up in 4 to 6 weeks. #Hypertension: blood pressure stable in office today. Patient states she is not taking losartan at this time. #Hyperlipidemia: patient should continue atorvastatin 40 mg #Depression: patient should continueVenlafaxine 150 mg Patient will follow-up in 4-6 weeks, sooner as needed. Time spent with patient 30 minutes with greater than 50% on care coordination and patient education. All patient questions answered in office today. Patient should call the office in the meantime with any questions or concerns. Case discussed with collaborating physician Mars Thompson who reviewed the assessment and plan. Chart, medications, labs, vital signs reviewed. Dictation was accomplished with the use of [employer] ([employer]) voice recognition software, prone to medical misidentifications and grammatical errors. This is unintentional and the practitioner does try to identify and correct these, but some could still be present. Please do not hesitate to contact practitioner for clarification. 05/31/2024 Hypertension, unspecified type (ICD-10 - I10) Ailyn Is a 57-year-old female who present the office for weight management f/u. : weight 188.6, BMI 33.41- extensively educated on diet, exercise. [facility], [facility] provided. Patient provided with educational handouts or guarding high-protein foods, low carbohydrate snacks, healthy fats, as well as a check sheet to focus on lifestyle modifications and logging food. Patient states that she does exercise pretty regularly. Educated on the importance of increasing her water intake. She has multiple factors regarding her diet that she can improve on, but will focus on 1-2 factors over the next two weeks, and follow-up fairly closely. Patient will work on decreasing her take-out consumption as she quite often eats out including pizza, grinders. Patient encouraged to increase her vegetable intake as well as focuss on limiting her danishes/muffins for breakfast and eat more protein for breakfast including eggs, grain toast with peanut butter/banana. Patient does not eat much protein throughout the day, and focuses most on carbohydrates. She does state that she has IBS, and that limits the consumption of multiple foods including vegetables, yogurt, egg whites. 03/11/23: weight 189.2, BMI 33.51- patient still struggling with lifestyle modifications. Has been improving decreasing carbohydrates for breakfast, but is still struggling to be consistent. Patient is eating a lot of carbohydrates, mac & cheese, pasta, Bellavita, cookies, swiss etc. Educated to increase colors in her diet, although patient's diet is very limited. She does present to the office of the lifts of food that she eats which contains approximately 30 foods with minimal fruit/minimal vegetables. Educated on the importance of trial and ear when it comes to foods. She is in the process of joining a [employer] gym, and working with her friend to experiment with different foods. 05/07/2023: Weight 183.3, BMI 32.47. Patient congratulated on efforts. Continues to lose consistent weight loss with lifestyle modifications, but is interested in weight management medications. Did discuss compounded semaglutide versus Saxenda versus Wegovy, she is interested in compounded semaglutide. We will start at 0.25 mg today, and she will follow-up every week for nursing visit, and I will see patient in the next 4 weeks. Did discuss proper use, and side effects of medication. 06/07/2023: Weight 179.2, BMI 31.74. Patient congratulated on effort. Has been continue to lose weight. Taking compounded semaglutide 0.25 mg with compliance. Is interested in increasing to 0.5 mg. Patient does endorse occasional nausea the day after she gets the injection, but it subsides. She also does state that she feels like she has more moodiness that used to be more controlled with her venlafaxine. We did have an extensive conversation regarding discontinuing semaglutide to see if that improves the moodiness but patient did not want to do this, and would prefer to contact her primary care provider on altering venlafaxine dose/switching medication etc. She declines any SI/HI but did educate extensively on return to office protocol/resources for patient to use. Continue to educate on the importance of lifestyle as patient is still eating out pretty consistently. Also discussed exercise that patient can tolerate as she is having some concern with left elbow pain. This is being followed up by PCP. 07/06/2023: Weight 178.4 pounds, BMI 31.6. Patient congratulated. Body composition reviewed showing only 1 pound loss, but patient has lost 3 pounds of fat, and gained 2 pounds of water weight. Encouraged to continue with high-protein, vegetables, and increasing water intake. Patient has goals to exercise with her friends that are holding her accountable over the next month, as well as go out and listen to some music live to bring more coco into her life. She is in the process of also establishing with psychiatry she is going to discuss this with her as well. 08/03/2023: Weight 175.6 pounds, BMI 31.1. Patient is lost few pounds since last visit, congratulated on effort. Overall, she is pleased. Taking semaglutide 0.5 mg with compliance, without any side effects. Would like to continue with 0.5 mg but is potentially interested in increasing to 1 mg at next visit. Educated on the importance of lifestyle. Patient has been spending more time with friends, and going to the gym with colleagues that are holding her accountable, and recently went to the [employer]. 09/13/23: Weight 173, BMI 30.66. SECA reviewed with patient - 3 lb fat loss, 1 lb muscle gain, 0.3 visceral fat loss. Patient has been on sema 1mg x 4 weeks without side effects. She reports her clothing fitting differently as well as reduction in appetite and snacking. She has been going to the gym or walking four times a week with friends/colleagues to hold her accountable. She was encouraged to increase her protein intake, incorporate more fruits and vegetables, drink more water. Recommended seeing a last sorter for help in incorporating more whole foods and improving her overall nutrition status, but the patient declines at this time, stating that won't change anything . Continue semaglutide 1mg weekly, follow up in 4 weeks. 11/03/2022: Weight 170, BMI 30.22. SECA reviewed with patient - 1 lb fat loss, 1 lb mucle loss, visceral fat loss. Patient has been on semaglutide 1mg x 10 weeks without side effects. She reports that her clothing is fitting her better with reduced snacking throughout the day. She has been participating in Cross[employer] with friends at least two times per week. She has been working to increase her protein and water intake and is encouraged to continue doing so. Planning to continue semaglutide 1mg weekly and will follow up in 4 weeks. Submit for Wegovy 1 mg. 12/16/2023: Weight 168.7, BMI 29.88. Patient graduated on effort, body composition reviewed showing fat loss, muscle increase. Patient's very pleased with progress overall. Continue with Wegovy, will increase to 1.7 mg. Taking with compliance, no side effects. Patient is very pleased with progress, has been consistent with exercise, holding accountability with friends at the gym. 04/17/2024: Weight 165.0, BMI 29.23. Patient graduated on effort. Patient admits to being off Wegovy 1.7mg for 3 weeks - 1 month d/t being denied by insurance. Explained to patient that the prior authorization was sent on April 01 and the insurance company has 4 weeks to either confirm or deny the request. Body scan revealed predominantly fat mass loss with 1 pound of muscle mass loss. Patient is a little discouraged because she thought she lost more weight. Consider starting at 1 mg of Wegovy due to SE profile and not being on medication for 1 month. Will f/u in 4-6 weeks. 05/31/2024: Weight 167, BMI 29: Weight up 2 pounds since last visit, declines body scan, but will get next visit. States is a financial concern, did state that we can leave it for her if she needs. Could not get Wegovy due to her not losing enough weight on the medication, insurance denied it. Will trial Contrave. Educated on proper use, proper tapering, side effects. Provided with sample, sent to [facility]. Follow-up in 4 to 6 weeks. #Hypertension: blood pressure stable in office today. Patient states she is not taking losartan at this time. #Hyperlipidemia: patient should continue atorvastatin 40 mg #Depression: patient should continueVenlafaxine 150 mg Patient will follow-up in 4-6 weeks, sooner as needed. Time spent with patient 30 minutes with greater than 50% on care coordination and patient education. All patient questions answered in office today. Patient should call the office in the meantime with any questions or concerns. Case discussed with collaborating physician Mars Thompson who reviewed the assessment and plan. Chart, medications, labs, vital signs reviewed. Dictation was accomplished with the use of [employer] ([employer]) voice recognition software, prone to medical misidentifications and grammatical errors. This is unintentional and the practitioner does try to identify and correct these, but some could still be present. Please do not hesitate to contact practitioner for clarification. 07/13/2024 Hyperlipidemia, unspecified hyperlipidemia type (ICD-10 - E78.5) Ailyn Is a 57-year-old female who present the office for weight management f/u. : weight 188.6, BMI 33.41- extensively educated on diet, exercise. ATIF reviewed, [facility] provided. Patient provided with educational handouts or guarding high-protein foods, low carbohydrate snacks, healthy fats, as well as a check sheet to focus on lifestyle modifications and logging food. Patient states that she does exercise pretty regularly. Educated on the importance of increasing her water intake. She has multiple factors regarding her diet that she can improve on, but will focus on 1-2 factors over the next two weeks, and follow-up fairly closely. Patient will work on decreasing her take-out consumption as she quite often eats out including pizza, grinders. Patient encouraged to increase her vegetable intake as well as focuss on limiting her danishes/muffins for breakfast and eat more protein for breakfast including eggs, grain toast with peanut butter/banana. Patient does not eat much protein throughout the day, and focuses most on carbohydrates. She does state that she has IBS, and that limits the consumption of multiple foods including vegetables, yogurt, egg whites. 03/11/23: weight 189.2, BMI 33.51- patient still struggling with lifestyle modifications. Has been improving decreasing carbohydrates for breakfast, but is still struggling to be consistent. Patient is eating a lot of carbohydrates, mac & cheese, pasta, Bellavita, cookies, swiss etc. Educated to increase colors in her diet, although patient's diet is very limited. She does present to the office of the lifts of food that she eats which contains approximately 30 foods with minimal fruit/minimal vegetables. Educated on the importance of trial and ear when it comes to foods. She is in the process of joining a [employer] gym, and working with her friend to experiment with different foods. 05/07/2023: Weight 183.3, BMI 32.47. Patient congratulated on efforts. Continues to lose consistent weight loss with lifestyle modifications, but is interested in weight management medications. Did discuss compounded semaglutide versus Saxenda versus Wegovy, she is interested in compounded semaglutide. We will start at 0.25 mg today, and she will follow-up every week for nursing visit, and I will see patient in the next 4 weeks. Did discuss proper use, and side effects of medication. 06/07/2023: Weight 179.2, BMI 31.74. Patient congratulated on effort. Has been continue to lose weight. Taking compounded semaglutide 0.25 mg with compliance. Is interested in increasing to 0.5 mg. Patient does endorse occasional nausea the day after she gets the injection, but it subsides. She also does state that she feels like she has more moodiness that used to be more controlled with her venlafaxine. We did have an extensive conversation regarding discontinuing semaglutide to see if that improves the moodiness but patient did not want to do this, and would prefer to contact her primary care provider on altering venlafaxine dose/switching medication etc. She declines any SI/HI but did educate extensively on return to office protocol/resources for patient to use. Continue to educate on the importance of lifestyle as patient is still eating out pretty consistently. Also discussed exercise that patient can tolerate as she is having some concern with left elbow pain. This is being followed up by PCP. 07/06/2023: Weight 178.4 pounds, BMI 31.6. Patient congratulated. Body composition reviewed showing only 1 pound loss, but patient has lost 3 pounds of fat, and gained 2 pounds of water weight. Encouraged to continue with high-protein, vegetables, and increasing water intake. Patient has goals to exercise with her friends that are holding her accountable over the next month, as well as go out and listen to some music live to bring more coco into her life. She is in the process of also establishing with psychiatry she is going to discuss this with her as well. 08/03/2023: Weight 175.6 pounds, BMI 31.1. Patient is lost few pounds since last visit, congratulated on effort. Overall, she is pleased. Taking semaglutide 0.5 mg with compliance, without any side effects. Would like to continue with 0.5 mg but is potentially interested in increasing to 1 mg at next visit. Educated on the importance of lifestyle. Patient has been spending more time with friends, and going to the gym with colleagues that are holding her accountable, and recently went to the [employer]. 09/13/23: Weight 173, BMI 30.66. SECA reviewed with patient - 3 lb fat loss, 1 lb muscle gain, 0.3 visceral fat loss. Patient has been on sema 1mg x 4 weeks without side effects. She reports her clothing fitting differently as well as reduction in appetite and snacking. She has been going to the gym or walking four times a week with friends/colleagues to hold her accountable. She was encouraged to increase her protein intake, incorporate more fruits and vegetables, drink more water. Recommended seeing a last sorter for help in incorporating more whole foods and improving her overall nutrition status, but the patient declines at this time, stating that won't change anything . Continue semaglutide 1mg weekly, follow up in 4 weeks. 11/03/2022: Weight 170, BMI 30.22. SECA reviewed with patient - 1 lb fat loss, 1 lb mucle loss, visceral fat loss. Patient has been on semaglutide 1mg x 10 weeks without side effects. She reports that her clothing is fitting her better with reduced snacking throughout the day. She has been participating in [employer] with friends at least two times per week. She has been working to increase her protein and water intake and is encouraged to continue doing so. Planning to continue semaglutide 1mg weekly and will follow up in 4 weeks. Submit for Wegovy 1 mg. 12/16/2023: Weight 168.7, BMI 29.88. Patient graduated on effort, body composition reviewed showing fat loss, muscle increase. Patient's very pleased with progress overall. Continue with Wegovy, will increase to 1.7 mg. Taking with compliance, no side effects. Patient is very pleased with progress, has been consistent with exercise, holding accountability with friends at the gym. 04/17/2024: Weight 165.0, BMI 29.23. Patient graduated on effort. Patient admits to being off Wegovy 1.7mg for 3 weeks - 1 month d/t being denied by insurance. Explained to patient that the prior authorization was sent on April 01 and the insurance company has 4 weeks to either confirm or deny the request. Body scan revealed predominantly fat mass loss with 1 pound of muscle mass loss. Patient is a little discouraged because she thought she lost more weight. Consider starting at 1 mg of Wegovy due to SE profile and not being on medication for 1 month. Will f/u in 4-6 weeks. 05/31/2024: Weight 167, BMI 29: Weight up 2 pounds since last visit, declines body scan, but will get next visit. States is a financial concern, did state that we can leave it for her if she needs. Could not get Wegovy due to her not losing enough weight on the medication, insurance denied it. Will trial Contrave. Educated on proper use, proper tapering, side effects. Provided with sample, sent to [facility]. Follow-up in 4 to 6 weeks. 07/13/24: Patient has personally discontinued the Contrave since last visit. Reports not noticing any weight loss and feeling more hungry in the morning. Discussed how Soledad was declined by insurrance. Discussed our options of submitting for Zepbound, but no guarantee this will be approved either. Offered the option of switching to compound semaglutide injections, but patient declined due to cost expense. Plan to submit for Zepbound and continue without medication, focusing of lifestyle modifications. Discussed a diet of 1200 calories to be in a deficit and promote weight loss. Discussed the importance of decreasing fat mass while also increasing skeletal muscle mass. Discussed importance of high protein diet. Patient verbalized understanding. Plan to follow up in 4-6 weeks. #Hypertension: blood pressure stable in office today. Patient states she is not taking losartan at this time. #Hyperlipidemia: patient should continue atorvastatin 40 mg #Depression: patient should continueVenlafaxine 150 mg Patient will follow-up in 4-6 weeks, sooner as needed. Time spent with patient 30 minutes with greater than 50% on care coordination and patient education. All patient questions answered in office today. Patient should call the office in the meantime with any questions or concerns. Case discussed with collaborating physician Mars Thompson who reviewed the assessment and plan. Chart, medications, labs, vital signs reviewed. Dictation was accomplished with the use of [employer]) voice recognition software, prone to medical misidentifications and grammatical errors. This is unintentional and the practitioner does try to identify and correct these, but some could still be present. Please do not hesitate to contact practitioner for clarification. 05/31/2024 Hyperlipidemia, unspecified hyperlipidemia type (ICD-10 - E78.5) Ailyn Is a 57-year-old female who present the office for weight management f/u. : weight 188.6, BMI 33.41- extensively educated on diet, exercise. SECA reviewed, [facility] provided. Patient provided with educational handouts or guarding high-protein foods, low carbohydrate snacks, healthy fats, as well as a check sheet to focus on lifestyle modifications and logging food. Patient states that she does exercise pretty regularly. Educated on the importance of increasing her water intake. She has multiple factors regarding her diet that she can improve on, but will focus on 1-2 factors over the next two weeks, and follow-up fairly closely. Patient will work on decreasing her take-out consumption as she quite often eats out including pizza, grinders. Patient encouraged to increase her vegetable intake as well as focuss on limiting her danishes/muffins for breakfast and eat more protein for breakfast including eggs, grain toast with peanut butter/banana. Patient does not eat much protein throughout the day, and focuses most on carbohydrates. She does state that she has IBS, and that limits the consumption of multiple foods including vegetables, yogurt, egg whites. 03/11/23: weight 189.2, BMI 33.51- patient still struggling with lifestyle modifications. Has been improving decreasing carbohydrates for breakfast, but is still struggling to be consistent. Patient is eating a lot of carbohydrates, mac & cheese, pasta, Bellavita, cookies, swiss etc. Educated to increase colors in her diet, although patient's diet is very limited. She does present to the office of the lifts of food that she eats which contains approximately 30 foods with minimal fruit/minimal vegetables. Educated on the importance of trial and ear when it comes to foods. She is in the process of joining a [employer] gym, and working with her friend to experiment with different foods. 05/07/2023: Weight 183.3, BMI 32.47. Patient congratulated on efforts. Continues to lose consistent weight loss with lifestyle modifications, but is interested in weight management medications. Did discuss compounded semaglutide versus Saxenda versus Wegovy, she is interested in compounded semaglutide. We will start at 0.25 mg today, and she will follow-up every week for nursing visit, and I will see patient in the next 4 weeks. Did discuss proper use, and side effects of medication. 06/07/2023: Weight 179.2, BMI 31.74. Patient congratulated on effort. Has been continue to lose weight. Taking compounded semaglutide 0.25 mg with compliance. Is interested in increasing to 0.5 mg. Patient does endorse occasional nausea the day after she gets the injection, but it subsides. She also does state that she feels like she has more moodiness that used to be more controlled with her venlafaxine. We did have an extensive conversation regarding discontinuing semaglutide to see if that improves the moodiness but patient did not want to do this, and would prefer to contact her primary care provider on altering venlafaxine dose/switching medication etc. She declines any SI/HI but did educate extensively on return to office protocol/resources for patient to use. Continue to educate on the importance of lifestyle as patient is still eating out pretty consistently. Also discussed exercise that patient can tolerate as she is having some concern with left elbow pain. This is being followed up by PCP. 07/06/2023: Weight 178.4 pounds, BMI 31.6. Patient congratulated. Body composition reviewed showing only 1 pound loss, but patient has lost 3 pounds of fat, and gained 2 pounds of water weight. Encouraged to continue with high-protein, vegetables, and increasing water intake. Patient has goals to exercise with her friends that are holding her accountable over the next month, as well as go out and listen to some music live to bring more coco into her life. She is in the process of also establishing with psychiatry she is going to discuss this with her as well. 08/03/2023: Weight 175.6 pounds, BMI 31.1. Patient is lost few pounds since last visit, congratulated on effort. Overall, she is pleased. Taking semaglutide 0.5 mg with compliance, without any side effects. Would like to continue with 0.5 mg but is potentially interested in increasing to 1 mg at next visit. Educated on the importance of lifestyle. Patient has been spending more time with friends, and going to the gym with colleagues that are holding her accountable, and recently went to the [employer]. 09/13/23: Weight 173, BMI 30.66. SECA reviewed with patient - 3 lb fat loss, 1 lb muscle gain, 0.3 visceral fat loss. Patient has been on sema 1mg x 4 weeks without side effects. She reports her clothing fitting differently as well as reduction in appetite and snacking. She has been going to the gym or walking four times a week with friends/colleagues to hold her accountable. She was encouraged to increase her protein intake, incorporate more fruits and vegetables, drink more water. Recommended seeing a last sorter for help in incorporating more whole foods and improving her overall nutrition status, but the patient declines at this time, stating that won't change anything . Continue semaglutide 1mg weekly, follow up in 4 weeks. 11/03/2022: Weight 170, BMI 30.22. SECA reviewed with patient - 1 lb fat loss, 1 lb mucle loss, visceral fat loss. Patient has been on semaglutide 1mg x 10 weeks without side effects. She reports that her clothing is fitting her better with reduced snacking throughout the day. She has been participating in [employer] with friends at least two times per week. She has been working to increase her protein and water intake and is encouraged to continue doing so. Planning to continue semaglutide 1mg weekly and will follow up in 4 weeks. Submit for Wegovy 1 mg. 12/16/2023: Weight 168.7, BMI 29.88. Patient graduated on effort, body composition reviewed showing fat loss, muscle increase. Patient's very pleased with progress overall. Continue with Wegovy, will increase to 1.7 mg. Taking with compliance, no side effects. Patient is very pleased with progress, has been consistent with exercise, holding accountability with friends at the gym. 04/17/2024: Weight 165.0, BMI 29.23. Patient graduated on effort. Patient admits to being off Wegovy 1.7mg for 3 weeks - 1 month d/t being denied by insurance. Explained to patient that the prior authorization was sent on April 01 and the insurance company has 4 weeks to either confirm or deny the request. Body scan revealed predominantly fat mass loss with 1 pound of muscle mass loss. Patient is a little discouraged because she thought she lost more weight. Consider starting at 1 mg of Wegovy due to SE profile and not being on medication for 1 month. Will f/u in 4-6 weeks. 05/31/2024: Weight 167, BMI 29: Weight up 2 pounds since last visit, declines body scan, but will get next visit. States is a financial concern, did state that we can leave it for her if she needs. Could not get Wegovy due to her not losing enough weight on the medication, insurance denied it. Will trial Contrave. Educated on proper use, proper tapering, side effects. Provided with sample, sent to [facility]. Follow-up in 4 to 6 weeks. #Hypertension: blood pressure stable in office today. Patient states she is not taking losartan at this time. #Hyperlipidemia: patient should continue atorvastatin 40 mg #Depression: patient should continueVenlafaxine 150 mg Patient will follow-up in 4-6 weeks, sooner as needed. Time spent with patient 30 minutes with greater than 50% on care coordination and patient education. All patient questions answered in office today. Patient should call the office in the meantime with any questions or concerns. Case discussed with collaborating physician Mars Thompson who reviewed the assessment and plan. Chart, medications, labs, vital signs reviewed. Dictation was accomplished with the use of [employer] ([employer]) voice recognition software, prone to medical misidentifications and grammatical errors. This is unintentional and the practitioner does try to identify and correct these, but some could still be present. Please do not hesitate to contact practitioner for clarification. 05/31/2024 Depression, unspecified depression type (ICD-10 - F32.A) Ailyn Is a 57-year-old female who present the office for weight management f/u. : weight 188.6, BMI 33.41- extensively educated on diet, exercise. SECA reviewed, MICC provided. Patient provided with educational handouts or guarding high-protein foods, low carbohydrate snacks, healthy fats, as well as a check sheet to focus on lifestyle modifications and logging food. Patient states that she does exercise pretty regularly. Educated on the importance of increasing her water intake. She has multiple factors regarding her diet that she can improve on, but will focus on 1-2 factors over the next two weeks, and follow-up fairly closely. Patient will work on decreasing her take-out consumption as she quite often eats out including pizza, grinders. Patient encouraged to increase her vegetable intake as well as focuss on limiting her danishes/muffins for breakfast and eat more protein for breakfast including eggs, grain toast with peanut butter/banana. Patient does not eat much protein throughout the day, and focuses most on carbohydrates. She does state that she has IBS, and that limits the consumption of multiple foods including vegetables, yogurt, egg whites. 03/11/23: weight 189.2, BMI 33.51- patient still struggling with lifestyle modifications. Has been improving decreasing carbohydrates for breakfast, but is still struggling to be consistent. Patient is eating a lot of carbohydrates, mac & cheese, pasta, Bellavita, cookies, swiss etc. Educated to increase colors in her diet, although patient's diet is very limited. She does present to the office of the lifts of food that she eats which contains approximately 30 foods with minimal fruit/minimal vegetables. Educated on the importance of trial and ear when it comes to foods. She is in the process of joining a [employer] gym, and working with her friend to experiment with different foods. 05/07/2023: Weight 183.3, BMI 32.47. Patient congratulated on efforts. Continues to lose consistent weight loss with lifestyle modifications, but is interested in weight management medications. Did discuss compounded semaglutide versus Saxenda versus Wegovy, she is interested in compounded semaglutide. We will start at 0.25 mg today, and she will follow-up every week for nursing visit, and I will see patient in the next 4 weeks. Did discuss proper use, and side effects of medication. 06/07/2023: Weight 179.2, BMI 31.74. Patient congratulated on effort. Has been continue to lose weight. Taking compounded semaglutide 0.25 mg with compliance. Is interested in increasing to 0.5 mg. Patient does endorse occasional nausea the day after she gets the injection, but it subsides. She also does state that she feels like she has more moodiness that used to be more controlled with her venlafaxine. We did have an extensive conversation regarding discontinuing semaglutide to see if that improves the moodiness but patient did not want to do this, and would prefer to contact her primary care provider on altering venlafaxine dose/switching medication etc. She declines any SI/HI but did educate extensively on return to office protocol/resources for patient to use. Continue to educate on the importance of lifestyle as patient is still eating out pretty consistently. Also discussed exercise that patient can tolerate as she is having some concern with left elbow pain. This is being followed up by PCP. 07/06/2023: Weight 178.4 pounds, BMI 31.6. Patient congratulated. Body composition reviewed showing only 1 pound loss, but patient has lost 3 pounds of fat, and gained 2 pounds of water weight. Encouraged to continue with high-protein, vegetables, and increasing water intake. Patient has goals to exercise with her friends that are holding her accountable over the next month, as well as go out and listen to some music live to bring more coco into her life. She is in the process of also establishing with psychiatry she is going to discuss this with her as well. 08/03/2023: Weight 175.6 pounds, BMI 31.1. Patient is lost few pounds since last visit, congratulated on effort. Overall, she is pleased. Taking semaglutide 0.5 mg with compliance, without any side effects. Would like to continue with 0.5 mg but is potentially interested in increasing to 1 mg at next visit. Educated on the importance of lifestyle. Patient has been spending more time with friends, and going to the gym with colleagues that are holding her accountable, and recently went to the [employer]. 09/13/23: Weight 173, BMI 30.66. SECA reviewed with patient - 3 lb fat loss, 1 lb muscle gain, 0.3 visceral fat loss. Patient has been on sema 1mg x 4 weeks without side effects. She reports her clothing fitting differently as well as reduction in appetite and snacking. She has been going to the gym or walking four times a week with friends/colleagues to hold her accountable. She was encouraged to increase her protein intake, incorporate more fruits and vegetables, drink more water. Recommended seeing a last sorter for help in incorporating more whole foods and improving her overall nutrition status, but the patient declines at this time, stating that won't change anything . Continue semaglutide 1mg weekly, follow up in 4 weeks. 11/03/2022: Weight 170, BMI 30.22. SECA reviewed with patient - 1 lb fat loss, 1 lb mucle loss, visceral fat loss. Patient has been on semaglutide 1mg x 10 weeks without side effects. She reports that her clothing is fitting her better with reduced snacking throughout the day. She has been participating in [employer] with friends at least two times per week. She has been working to increase her protein and water intake and is encouraged to continue doing so. Planning to continue semaglutide 1mg weekly and will follow up in 4 weeks. Submit for Wegovy 1 mg. 12/16/2023: Weight 168.7, BMI 29.88. Patient graduated on effort, body composition reviewed showing fat loss, muscle increase. Patient's very pleased with progress overall. Continue with Wegovy, will increase to 1.7 mg. Taking with compliance, no side effects. Patient is very pleased with progress, has been consistent with exercise, holding accountability with friends at the gym. 04/17/2024: Weight 165.0, BMI 29.23. Patient graduated on effort. Patient admits to being off Wegovy 1.7mg for 3 weeks - 1 month d/t being denied by insurance. Explained to patient that the prior authorization was sent on April 01 and the insurance company has 4 weeks to either confirm or deny the request. Body scan revealed predominantly fat mass loss with 1 pound of muscle mass loss. Patient is a little discouraged because she thought she lost more weight. Consider starting at 1 mg of Wegovy due to SE profile and not being on medication for 1 month. Will f/u in 4-6 weeks. 05/31/2024: Weight 167, BMI 29: Weight up 2 pounds since last visit, declines body scan, but will get next visit. States is a financial concern, did state that we can leave it for her if she needs. Could not get Wegovy due to her not losing enough weight on the medication, insurance denied it. Will trial Contrave. Educated on proper use, proper tapering, side effects. Provided with sample, sent to [facility]. Follow-up in 4 to 6 weeks. #Hypertension: blood pressure stable in office today. Patient states she is not taking losartan at this time. #Hyperlipidemia: patient should continue atorvastatin 40 mg #Depression: patient should continueVenlafaxine 150 mg Patient will follow-up in 4-6 weeks, sooner as needed. Time spent with patient 30 minutes with greater than 50% on care coordination and patient education. All patient questions answered in office today. Patient should call the office in the meantime with any questions or concerns. Case discussed with collaborating physician Mars Thompson who reviewed the assessment and plan. Chart, medications, labs, vital signs reviewed. Dictation was accomplished with the use of [employer] ([employer]) voice recognition software, prone to medical misidentifications and grammatical errors. This is unintentional and the practitioner does try to identify and correct these, but some could still be present. Please do not hesitate to contact practitioner for clarification. Plan Of Treatment No Information Insurance Providers Payer Name Payer Address Payer Phone Subscriber Number Group Number Insured Name Patient Relationship to Insured Coverage Start Date Coverage End Date [facility] [address] [facility] [address] [phone] [id number] Ailyn Schroeder Self - patient is the insured Medications Administered Medication Instructions Date of Administration Dosage Notes MICC B12 INJECTION 02/11/2023 lot #[id number] MICC B12 INJECTION 03/11/2023 MICC B12 INJECTION 06/14/2023 sema 0 .25mg Semaglutide 05/07/2023 Semaglutide 05/18/2023 0.25 mg Lot #: [id number] Semaglutide 05/24/2023 lot# [id number] 0.25mg Semaglutide 05/31/2023 sema0.25mg Semaglutide 06/07/2023 0.5 mg L tricep SQ Semaglutide 06/21/2023 sema 0.5mg Semaglutide 06/28/2023 sema 0.5mg Semaglutide 07/06/2023 0.5 mg sema 0.5mg Semaglutide 07/12/2023 Semaglutide 07/19/2023 0.5mg sema Semaglutide 07/27/2023 0.5 sema 0.5 Semaglutide 08/03/2023 sema 0.5 Semaglutide 08/10/2023 1 1mg Semaglutide 08/16/2023 1 sema 1mg Semaglutide 08/26/2023 lot#[id number] 1mg Semaglutide 08/30/2023 lot#[id number] 1mg Semaglutide 09/06/2023 1 mg Sema 1mg lot: [id number] Semaglutide 09/13/2023 1 mg Semaglutide 09/20/2023 1 Semaglutide 09/27/2023 1 mg Semaglutide 10/15/2023 1 mg Semaglutide 10/21/2023 1 mg Semaglutide 11/03/2023 1 Semaglutide 11/16/2023 1 mg Medical (General) History Medical History History ICD Code hyperlipidemia hypertension Depression Back pain IBS Surgical History Surgery Date(Month/Year) lower back
== END 2025-05-10 12:50 | disposition home or self-care (01) ==
LOC: HO.HMCFM 11:41
PROVIDERS: PCP Physician Assistant Medical; Visit Provider Physician Assistant Medical
DX: R07.89 Other chest pain (principal); M25.512 Pain in left shoulder; M54.16 Radiculopathy, lumbar region; M54.2 Cervicalgia; R53.83 Other fatigue; G47.8 Other sleep disorders; F41.8 Other specified anxiety disorders; R06.00 Dyspnea, unspecified; M25.50 Pain in unspecified joint; I10 Essential (primary) hypertension

== ENCOUNTER → 2025-05-10 11:40 | Outpatient (BNVA) | payer OTHER, SELFPAY | PROVIDERS: PCP Physician Assistant Medical; Visit Provider Physician Assistant Medical | DX: R07.89 Other chest pain (principal); M25.512 Pain in left shoulder; M54.16 Radiculopathy, lumbar region; M54.2 Cervicalgia; R53.83 Other fatigue; G47.8 Other sleep disorders; F41.8 Other specified anxiety disorders; R06.00 Dyspnea, unspecified; M25.50 Pain in unspecified joint; I10 Essential (primary) hypertension; Z79.899 Other long term (current) drug therapy; Z13.30 Encounter for screening examination for mental health and behavioral disorders, unspecified; Z13.31 Encounter for screening for depression | CPT/HCPCS: 93005; 96127; 99202 ==

== ENCOUNTER 2025-05-14 09:48 | Outpatient (REF) | payer OTHER, SELFPAY ==
[2025-05-14 11:42] LABS: MANUAL DIFF FLAG NO
[2025-05-14 11:57] LABS: Hematocrit 38.9 % (37.0-47.0); Hemoglobin 13.0 g/dl (12.0-16.0); Imm Gran Abs Auto 0.01 X10*3/uL (0.00-0.03); Imm Gran Pct Auto 0.2 % (0.0-0.4); Lymphocytes Absolute Auto 1.6 X10*3/uL (1.2-4.9); Mean Corpuscular HGB Conc 33.4 g/dl (31.0-35.0); Mean Corpuscular Hemoglobin 29.1 pg (27.0-33.0); Mean Corpuscular Volume 87.0 fL (80.0-98.0); NRBC Abs Auto 0.000 X10*3/uL (0.0-0.012); NRBC Pct Auto 0.0 /100WBC (0.0-0.2); Platelet Count 401 X10*3/uL (160-400); Red Blood Count 4.47 X10*6/uL (4.20-5.50); White Blood Count 6.0 X10*3/uL (4.8-10.8)
[2025-05-14 12:40] LABS: Alanine Aminotransferase 27 U/L (0-31); Albumin Level 4.2 g/dL (3.5-5.0); Alkaline Phosphatase 72 U/L (39-117); Anion Gap 11 (12-20); Aspartate Amino Transferase 29 U/L (5-31); Blood Urea Nitrogen 12 mg/dL (9-16); Calcium 9.2 mg/dL (8.4-10.2); Carbon Dioxide 27 mmol/L (22-29); Chloride 109 mmol/L (96-108); Cholesterol 152 mg/dL (<200); Estimated Glomerular Filt Rate > 60; HDL Cholesterol 33 mg/dL (>40); Magnesium 2.2 mg/dL (1.6-2.6); Potassium 4.1 mmol/L (3.3-5.1); Sodium 143 mmol/L (135-145); Total Protein 7.2 g/dL (6.5-8.0); Triglycerides 95 mg/dL (<150)
[2025-05-14 13:05] LABS: Vitamin B12 941 pg/mL (200-900)
[2025-05-14 15:15] LABS: Appearance Urine Cloudy; Glucose Urine UA Negative (Negative); PH 6.0 (5.0-9.0); Specific Gravity - Urine 1.020 (1.005-1.025); UMIC TRIGGER UA YES
[2025-05-15 06:24] LABS: Lyme Abs Screen <0.90 index
[2025-05-17 14:48] LABS: Vitamin D 25-OH, D2 <4 ng/mL; Vitamin D 25-OH, D3 28 ng/mL; Vitamin D 25-OH, Total 28 ng/mL (30-100)
[2025-05-21 13:03] LABS: Anti Nuclear Antibody Screen POSITIVE (NEGATIVE); Anti Nuclear Antibody Titer 1:40 titer
== END 2025-05-14 09:49 | disposition home or self-care (01) ==
LOC: HO.WFDLDS 09:48
PROVIDERS: Visit Provider Physician Assistant Medical
DX: Z01.84 Encounter for antibody response examination (principal); M54.16 Radiculopathy, lumbar region; I10 Essential (primary) hypertension; R53.83 Other fatigue; M25.512 Pain in left shoulder; E78.5 Hyperlipidemia, unspecified; R39.9 Unspecified symptoms and signs involving the genitourinary system; M85.80 Other specified disorders of bone density and structure, unspecified site; Z91.89 Other specified personal risk factors, not elsewhere classified
CPT/HCPCS: 36415; 80053; 80061; 81001; 82306; 82550; 82607; 83735; 84443; 85025; 85652; 86038; 86039; 86140; 86431; 86617; 86618

== ENCOUNTER → 2025-06-10 07:26 | Outpatient (BNV) | payer OTHER, SELFPAY | PROVIDERS: PCP Physician Assistant Medical; Visit Provider Radiology Diagnostic Radiology | DX: M25.512 Pain in left shoulder (principal) | CPT/HCPCS: 73221 ==

== ENCOUNTER 2025-06-10 07:30 | Outpatient (REF) | payer OTHER, SELFPAY ==
--- NOTE | ~2025-06-10 | MR_ITS ---
CLINICAL HISTORY: M25.512 - Pain in left shoulder Exam: MRI of the left shoulder without intravenous contrast. Comparison: None provided. Findings: No discrete rotator cuff tear is identified. There is zpvi-yo-vvjwnnva tendinopathy of the distal supraspinatus and infraspinatus tendons with areas of fraying along the articular and bursal surfaces of the distal supraspinatus tendon. No discrete fluid cleft to suggest a partial-thickness tear. Mild subscapularis tendinopathy. Teres minor is unremarkable. No tendon retraction or muscle atrophy. Moderate degenerative change of the glenohumeral joint. Cartilage thinning, joint space narrowing and osteophyte formation is evident. Small glenohumeral joint effusion with synovitis. Degenerative appearing tear of the superior labrum extends from the 9 o'clock to 12 o'clock position. Tear does not extend into the proximal biceps tendon. No tear of the anteroinferior labrum is identified. The tendon of the long head of the biceps is appropriately positioned within the bicipital groove. There is thickening and increased intrasubstance signal intensity within the distal biceps tendon within the distal bicipital groove. Type 2 acromion. Mild degenerative change of the AC joint. Increased fluid within the subacromial/subdeltoid bursa. Impression: 1. Supraspinatus, infraspinatus, and subscapularis tendinopathy without discrete rotator cuff tear. 2. Moderate glenohumeral joint DJD with likely degenerative SLAP tear. 3. Biceps tendinopathy without tear. 4. Subacromial/subdeltoid bursitis. This document has been electronically signed by: Karl Caceres MD on 06/12/2025 18:47:15
== END 2025-06-10 07:31 | disposition home or self-care (01) ==
LOC: HO.MRI 07:30
PROVIDERS: PCP Physician Assistant Medical; Visit Provider Physician Assistant Medical
DX: M25.512 Pain in left shoulder (principal); R53.83 Other fatigue; E78.5 Hyperlipidemia, unspecified; I10 Essential (primary) hypertension
CPT/HCPCS: 73221

== ENCOUNTER 2025-06-18 08:03 | Outpatient (REF) | payer OTHER, SELFPAY ==
[2025-06-18 11:35] LABS: Appearance Urine Cloudy; Glucose Urine UA Negative (Negative); PH 5.5 (5.0-9.0); Specific Gravity - Urine 1.020 (1.005-1.025); UMIC TRIGGER UA YES
[2025-06-19 07:07] LABS: Follicle Stimulating Hormone 93.8 mIU/mL
== END 2025-06-18 08:04 | disposition home or self-care (01) ==
LOC: HO.WFDLDS 08:03
PROVIDERS: Visit Provider Physician Assistant Medical
DX: R74.8 Abnormal levels of other serum enzymes (principal); M25.50 Pain in unspecified joint; R53.83 Other fatigue; R39.9 Unspecified symptoms and signs involving the genitourinary system
CPT/HCPCS: 36415; 81001; 82550; 82672; 83001; 83002; 87086

== ENCOUNTER 2025-06-21 14:27 | Outpatient (AMB) | payer OTHER, SELFPAY ==
--- NOTE | 2025-06-21 14:30 | MHC.PC.OV ---
Vital Signs 06/21/25 14:38 Height 5 ft 4 in Weight 177 lb 2 oz BMI 30.4 BP 122/72 Blood Pressure Location Rt brachial Position Sitting Pulse 71 Pulse Source Pulse Oximeter Temp 98.4 F Temp Source Temporal Artery Scan Pulse Oximetry (%) 98 Oxygen Delivery Method Room Air Intake Visit Reasons: 30 minute follow up multiple problems/review resul Intake Note: Lissa presents in the office today for a follow up to multiple problems and a review of her results. Allergies No Known Allergies Allergy (Verified 06/21/25 14:35) Medication List - Last Reconciled 06/22/25 by TAJ Gill albuterol sulfate 90 mcg/actuation 2 inhalations inhalation .every 4 hours PRN 30 days cholecalciferol (vitamin D3) 25 mcg PO DAILY lamotrigine 25 mg PO DAILY losartan 25 mg PO DAILY rosuvastatin 10 mg PO BEDTIME venlafaxine ER 150 mg PO DAILY venlafaxine ER 75 mg PO DAILY Tobacco use date assessed: 06/21/25 Dental Screening Dental Screen Date: 06/21/25 Did you have a dental visit in the last 12 months?: No Did you have a dental problem in the last 6 months where you did not have access to dental care?: No Was dental information given to patient?: Patient has dentist HPI HPI Comments History of Present Illness Details This is a 59-year-old female with a past medical history of hypertension, hyperlipidemia, prior tobacco use and lumbar degenerative disc disease presenting for follow up. Degenerative disc disease-she had lower back surgery in July 2013 at [facility]. Symptoms improved, but she had persistent lower back pain that radiates to the left leg as well as intermittent numbness and tingling in her left leg. Her symptoms have been worse during the past 6 months. Average daily pain is 7/10. In the past she tried acupuncture, lower back injections. She is treating symptoms with vhox-nfs-jwveapd pain relievers like naproxen. Denies loss of bowel or bladder control or numbness or tingling in the groin. Sometimes left leg feels weak. We reviewed the findings on her x-ray. She wants to continue physical therapy and conservative management for now. She is open to specialty consult if symptoms continue. She feels that physical therapy is helping. She endorses left shoulder pain for 3-4 months. It hurts to lift her arm above her shoulder. She stopped Cross[employer] and is doing physical therapy. She had an MRI which shows rotator cuff tendinopathy, bicipital tendonitis, bursitis and osteoarthritis. She defers referral to Orthopedics at this time. Endorses tension in her neck muscles. When she is lying down at night and holding her phone up her hands and forearms get tingly and she has to reposition. Her x-ray demonstrated multilevel degenerative disc disease. She is doing physical therapy for this as well. Creatinine kinase level normalized after stopping atorvastatin. She does not notice a difference in her symptoms. TAYE positive. Referred to rheum. Urine shows mild microhematuria.No symptoms. Urine culture negative. She has a history of depression with anxiety. She is on venlafaxine. She saw the psychiatrist. They added Lamictal. She is seeing a therapist, but she is not sure she is a good fit. No alcohol use. Hypertension-reduce losartan to 25 mg. Blood pressure is normal. She reports seeing Cardiology a few years ago for an echo and stress test. She has a heart murmur. She quit smoking 12 years ago. She feels like she can not take a deep breath and she has tightness in her lungs/chest when she is exercising at [employer]. Denies history of asthma or COPD. Denies chest pain, palpitations and pedal edema. PFT is pending. ROS: Constitutional: No unexplained weight loss, fever, chills or night sweats. Eyes: No vision changes, blurry vision, double vision, eye pain Respiratory: No cough, wheezing, hemoptysis or sputum production. See HPI Cardiovascular: See HPI Gastrointestinal: No anorexia, nausea, vomiting or diarrhea. No abdominal pain or blood in stool. Genitourinary: No dysuria, hematuria, urinary frequency. Neurologic: No headache, dizziness, syncope, ataxia or seizures or tremors Musculoskeletal see HPI Hematologic/Lymphatics: No bleeding or bruising. No painful lymph nodes. Skin: No rash or tick bites Psychiatric: No SI/HI. Physical exam: Constitutional: Alert, in no distress. Head: Normocephalic. Neck: Supple, Full range of motion. No lymphadenopathy. No palpable thyroid masses. Respiratory: Clear to auscultation. Cardiovascular: S1 S2 regular. I/ murmur. Gastrointestinal: Abdomen soft, non-tender, non-distended. Normal bowel sounds. No palpable masses. Neurologic: No focal neurological deficits. Symmetric patellar reflexes. Moves all extremities spontaneously. Sensation intact bilaterally. Skin: No rashes or lesions. Extremities: Warm and well perfused. No clubbing, cyanosis or edema. Intact peripheral pulses bilaterally. Psychiatric: Normal mood and affect [facility] Medical History (Updated 06/21/25 @ 15:09 by TAJ Gill) Microhematuria Positive TAYE (antinuclear antibody) Elevated creatine kinase Heart murmur Essential hypertension Hyperlipidemia Multiple joint pain Dyspnea Depression with anxiety Non-restorative sleep Fatigue Cervicalgia Lumbar radiculopathy Left shoulder pain Chest tightness Surgical History (Updated 05/10/25 @ 13:30 by TAJ Gill) History of back surgery Family History Brother Alcoholism Other Substance abuse Social History (Updated 06/21/25 @ 14:38 by Kelsey Fan MA) Housing: House Alcohol intake: current Patient Tobacco Use Status: Former Tobacco user Cigarette Packs Per Day: 1 Cigarettes Per Day: 10 Years Smoked: 12 e-Cigarette/Vaping Use: Never Used Second Hand Smoke Exposure: No service: No Current occupational status: employed Current occupation: [employer] Current occupational exposures/hazards: Yes Cognitive needs: No Hearing needs: No Vision needs: No Questionnaire Thrive Questionnaire Date Thrive assessed: 05/03/25 I am a: Patient What is your living situation today?: I have a steady place to live Within the past 12 months, did the food you bought not last and you didn't have the money to get more?: Never true Within the past 12 months, did you worry whether your food would run out before you got money to buy more?: Never true Do you have trouble paying for medicines?: No Do you have trouble getting transportation to medical appointments?: No Do you have trouble paying your heating and electricity bill?: No Do you have trouble taking care of your child, family member or friend?: No Do you have trouble with day-to-day activities such as bathing, preparing meals, shopping, managing finances, etc.?: No Are you currently unemployed and looking for a job?: No Are you interested in more education?: No Please select the resources that you would like help with: None Currently or been in a relationship where the following occur: No concerns reported THRIVE Score: 0 SOPHIA-7 AMB Questionnaire SOPHIA-7 Date SOPHIA - 7 assessed: 05/10/25 Source: Developed by Drs. Bc Hyatt, Tara Burch, Jack Dominguez and colleagues, with an educational bobbi from [employer]. Physical exam (Primary Care) Vital Signs: Last Vital Signs Temp 98.4 F 06/21/25 14:38 Pulse 71 06/21/25 14:38 BP 122/72 06/21/25 14:38 Pulse Ox 98 06/21/25 14:38 Oxygen Delivery Method Room Air 06/21/25 14:38 BMI result Body Mass Index 30.4 Tobacco/Smoking Status: Tobacco use Status Tobacco use date assessed 06/21/25 06/21/25 14:43 Patient Tobacco Use Status Former Tobacco user 06/21/25 14:38 e-Cigarette/Vaping Use Never Used 06/21/25 14:38 Thrive Assessment: Date of Thrive Assessment Date Thrive assessed 05/03/25 06/21/25 14:31 Currently or been in a relationship where the following occur: No concerns reported Coding Level of Care Code Est Pt Level 4 (20613) Complex EM visit Add On G2211 Diagnoses Chest tightness R07.89 Left shoulder pain M25.512 Lumbar radiculopathy M54.16 Cervicalgia M54.2 Fatigue R53.83 Depression with anxiety F41.8 Multiple joint pain M25.50 Essential hypertension I10 Microhematuria R31.29 Hyperlipidemia E78.5 Assessment & Plan Assessment & Plan (1) Chest tightness: Code(s): R07.89 - Other chest pain Category: Medical Plan: Request prior workup and notes from [facility]. She associates this with feeling like she can not take a deep breath while exercising. History of smoking. Proceed with PFT. EKG in office showed no acute ischemic changes. (2) Left shoulder pain: Code(s): M25.512 - Pain in left shoulder Category: Medical Plan: Reviewed MRI results with the patient. She wants to continue conservative management with physical therapy. If this is not effective she will be referred to Orthopedics. (3) Lumbar radiculopathy: Code(s): M54.16 - Radiculopathy, lumbar region Category: Medical Plan: She is going to continue physical therapy. Reviewed degenerative changes on x-ray. (4) Cervicalgia: Code(s): M54.2 - Cervicalgia Category: Medical Plan: Continue physical therapy. (5) Fatigue: Code(s): R53.83 - Other fatigue Category: Medical Plan: Proceed with sleep study. (6) Depression with anxiety: Code(s): F41.8 - Other specified anxiety disorders Category: Medical Plan: She is seeing a psychiatrist. I gave her the information for a therapist she can contact who does telehealth. (7) Multiple joint pain: Code(s): M25.50 - Pain in unspecified joint Category: Medical Plan: Start vitamin-D. Positive TAYE. Referred to Rheumatology. Some of this is due to osteoarthritis and degenerative changes. (8) Essential hypertension: Code(s): I10 - Essential (primary) hypertension Category: Medical Plan: Continue losartan 25 mg daily. (9) Microhematuria: Code(s): R31.29 - Other microscopic hematuria Category: Medical Plan: Refer to Urology. Reviewed differential with the patient. (10) Hyperlipidemia: Code(s): E78.5 - Hyperlipidemia, unspecified Category: Medical Plan: Start rosuvastatin 10 mg nightly. Check liver enzymes and lipid profile in 8 weeks. Plan Follow up in 8 weeks. Orders: Orders Lipid Panel 8 Weeks E78.5 - Hyperlipidemia, unspecified, R31.29 - Other microscopic hematuria Aspartate Amino Transferase 8 Weeks E78.5 - Hyperlipidemia, unspecified, R31.29 - Other microscopic hematuria Alanine Aminotransferase 8 Weeks E78.5 - Hyperlipidemia, unspecified, R31.29 - Other microscopic hematuria Referrals Urology Referral R31.29 - Other microscopic hematuria Medications: New cholecalciferol (vitamin D3) 25 mcg PO DAILY 90 caps 0RF rosuvastatin 10 mg PO BEDTIME 90 tabs 0RF
--- OUTSIDE RECORDS SUMMARY | 2025-06-21 14:36 | XMS_ITS | Patient Health Record ---
Author Organization [facility] [address] Address [address] [place] [address] Care Team Providers Care Certified Industrial Hygienist Name Role Phone ABHILASH JOSUE Unavailable [phone] JOLANTA RGACE Unavailable [phone] Allergies No Known Allergies Reason For Referral [...] nonsmoker Section Notes: operatinal asst /Sec. at [facility] operatinal asst /Sec. at [facility] operatinal asst /Sec. at [facility] operatinal asst /Sec. at [facility] operatinal asst /Sec. at [facility] operatinal asst /Sec. at [facility] operatinal asst /Sec. at [facility] operatinal asst /Sec. at [facility] operatinal asst /Sec. at [facility] operatinal asst /Sec. at [facility] operatinal asst /Sec. at [facility] operatinal asst /Sec. at [facility] operatinal asst /Sec. at [facility] Problems Problem Type SNOMED Code ICD Code Onset Dates Problem Status W/U Status Risk Notes Problem Obesity (053068430) Other obesity (E66.8) Active confirmed Problem Hyperlipidaemia (37969231) Hyperlipidemia, unspecified hyperlipidemia type (E78.5) Active confirmed Problem Essential hypertension (42424189) Hypertension, unspecified type (I10) Active confirmed Problem Obesity (404356835) Obesity (BMI 30-39.9) (E66.9) Active confirmed Problem Body mass index 30.00 to 34.99 (485676202965793) Body mass index [BMI] 33.0-33.9, adult (Z68.33) Active confirmed Problem Obese class I (016441581426295) BMI 33.0-33.9,adult (Z68.33) Active confirmed Problem Body mass index 30.00 to 34.99 (952127147395801) BMI 31.0-31.9,adult (Z68.31) Active confirmed Problem Body mass index 30+ - obesity (179218797) BMI 30.0-30.9,adult (Z68.30) Active confirmed Vital Signs Heart Rate 80 /min 07/13/2024 Oximetry 97 % 07/13/2024 Blood pressure diastolic 82 mm Hg 07/13/2024 Height 63 in 07/13/2024 Blood pressure systolic 134 mm Hg 07/13/2024 Weight 172.0 lbs 07/13/2024 BMI 30.47 kg/m2 07/13/2024 Encounters Encounter Location Date Provider Diagnosis [facility] [address] [place] [address] 07/13/2024 JOLANTA GRACE Obesity (BMI 30-39.9 ) E66.9 ; BMI 30.0-30.9,adult Z68.30 ; Hypertension, unspecified type I10 and Hyperlipidemia, unspecified hyperlipidemia type E78.5 [facility] [address] [place] [id number] 08/18/2024 ABHILASH JOSUE Assessments Encounter Date Diagnosis (ICD Code) Assessment Notes Treatment Notes Treatment Clinical Notes Section Notes 07/13/2024 Obesity (BMI 30-39.9) (ICD-10 - E66.9) Ailyn Is a 57-year-old female who present the office for weight management f/u. : weight 188.6, BMI 33.41- extensively educated on diet, exercise. [facility] reviewed, [facility] provided. Patient provided with educational handouts or [...] carbohydrates, mac & cheese, pasta, Bellavita, cookies, [place] citizen etc. Educated to increase colors in her diet, although patient's diet is very limited. She does present to the office of the lifts of food that she eats which contains approximately 30 foods with minimal fruit/minimal vegetables. Educated on the importance of trial and ear when it comes to foods. She is in the process of joining a [employer] gym, and working with her friend to [...] her accountable, and recently went to the [facility]. 09/13/23: Weight 173, BMI 30.66. SECA reviewed [...] vegetables, drink more water. Recommended seeing a press breaker for help in incorporating more whole foods [...] the day. She has been participating in [employer] with friends at least two times per [...] side effects. Provided with sample, sent to [employer]. Follow-up in 4 to 6 weeks. 07/13/24: [...] Dictation was accomplished with the use of [employer] voice recognition software, prone to medical misidentifications [...] extensively educated on diet, exercise. [facility]CA reviewed, [facility] provided. Patient provided with educational handouts [...] carbohydrates, mac & cheese, pasta, Bellavita, cookies, [place] citizen etc. Educated to increase colors in her diet, although patient's diet is very limited. She does present to the office of the lifts of food that she eats which contains approximately 30 foods with minimal fruit/minimal vegetables. Educated on the importance of trial and ear when it comes to foods. She is in the process of joining a [employer] gym, and working with her friend to [...] her accountable, and recently went to the [facility]. 09/13/23: Weight 173, BMI 30.66. [facility] reviewed [...] vegetables, drink more water. Recommended seeing a press breaker for help in incorporating more whole foods [...] side effects. Provided with sample, sent to [employer]. Follow-up in 4 to 6 weeks. 07/13/24: [...] Dictation was accomplished with the use of [employer] voice recognition software, prone to medical misidentifications [...] extensively educated on diet, exercise. [facility] reviewed, [facility] provided. Patient provided with educational handouts [...] carbohydrates, mac & cheese, pasta, Bellavita, cookies, [place] citizen etc. Educated to increase colors in her diet, although patient's diet is very limited. She does present to the office of the lifts of food that she eats which contains approximately 30 foods with minimal fruit/minimal vegetables. Educated on the importance of trial and ear when it comes to foods. She is in the process of joining a [employer] gym, and working with her friend to [...] her accountable, and recently went to the [facility]. 09/13/23: Weight 173, BMI 30.66. [facility] reviewed [...] vegetables, drink more water. Recommended seeing a press breaker for help in incorporating more whole foods [...] side effects. Provided with sample, sent to [employer]. Follow-up in 4 to 6 weeks. 07/13/24: [...] Dictation was accomplished with the use of [employer] voice recognition software, prone to medical misidentifications [...] extensively educated on diet, exercise. [facility]CA reviewed, [facility] provided. Patient provided with educational handouts [...] carbohydrates, mac & cheese, pasta, Bellavita, cookies, [place] citizen etc. Educated to increase colors in her diet, although patient's diet is very limited. She does present to the office of the lifts of food that she eats which contains approximately 30 foods with minimal fruit/minimal vegetables. Educated on the importance of trial and ear when it comes to foods. She is in the process of joining a [employer] gym, and working with her friend to [...] her accountable, and recently went to the [facility]. 09/13/23: Weight 173, BMI 30.66. [facility]CA reviewed [...] vegetables, drink more water. Recommended seeing a press breaker for help in incorporating more whole foods [...] side effects. Provided with sample, sent to [employer]. Follow-up in 4 to 6 weeks. 07/13/24: [...] Dictation was accomplished with the use of [employer] voice recognition software, prone to medical misidentifications [...] Insured Coverage Start Date Coverage End Date [facility] [address] [place] [address] [phone] [id number] Ailyn Schroeder Self - patient is the insured 2 Medications Administered Medication Instructions Date of Administration Dosage Notes [facility] B12 INJECTION 02/11/2023 lot #[id number] [facility] B12 INJECTION 03/11/2023 MIC[facility] B12 INJECTION 06/14/2023 sema 0 .25mg Semaglutide 05/07/2023 Semaglutide 05/18/2023 0.25 mg Lot #: [id number] Semaglutide 05/24/2023 lot# [id number] 0.25mg Semaglutide 05/31/2023 sema0.25mg Semaglutide 06/07/2023 0.5 mg L tricep SQ Semaglutide 06/21/2023 sema 0.5mg Semaglutide 06/28/2023 sema 0.5mg Semaglutide 07/06/2023 0.5 mg sema 0.5mg Semaglutide 07/12/2023 Semaglutide 07/19/2023 0.5mg sema Semaglutide 07/27/2023 0.5 sema 0.5 Semaglutide 08/03/2023 sema 0.5 Semaglutide 08/10/2023 1 1mg Semaglutide 08/16/2023 1 sema 1mg Semaglutide 08/26/2023 [id number] 1mg Semaglutide 08/30/2023 lot#[id number] 1mg Semaglutide 09/06/2023 1 mg Sema 1mg lot: [id number] Semaglutide 09/13/2023 1 mg Semaglutide 09/20/2023 1 Semaglutide 09/27/2023 1 mg Semaglutide 10/15/2023 1 mg Semaglutide 10/21/2023 1 mg Semaglutide 11/03/2023 1 Semaglutide 11/16/2023 1 mg Medical (General) History Medical History History ICD Code hyperlipidemia hypertension Depression Back pain IBS Surgical History Surgery Date(Month/Year) lower back
[2025-06-21 14:38] VITALS: BP 122/72; PULSE 71; TEMP 36.9; O2SAT 98; BMI 30.4
== END 2025-06-21 15:21 | disposition home or self-care (01) ==
LOC: HO.HMCFM 14:28
PROVIDERS: PCP Physician Assistant Medical; Visit Provider Physician Assistant Medical
DX: R07.89 Other chest pain (principal); M25.512 Pain in left shoulder; M54.16 Radiculopathy, lumbar region; M54.2 Cervicalgia; R53.83 Other fatigue; F41.8 Other specified anxiety disorders; M25.50 Pain in unspecified joint; I10 Essential (primary) hypertension; R31.29 Other microscopic hematuria; E78.5 Hyperlipidemia, unspecified

== ENCOUNTER → 2025-06-21 14:27 | Outpatient (BNVA) | payer OTHER, SELFPAY | PROVIDERS: PCP Physician Assistant Medical; Visit Provider Physician Assistant Medical | DX: R07.89 Other chest pain (principal); I10 Essential (primary) hypertension; M25.512 Pain in left shoulder; M54.16 Radiculopathy, lumbar region; M54.2 Cervicalgia; M25.50 Pain in unspecified joint; R31.29 Other microscopic hematuria; R53.83 Other fatigue; E78.5 Hyperlipidemia, unspecified; F41.8 Other specified anxiety disorders | CPT/HCPCS: 99212 ==

== ENCOUNTER → 2025-08-09 09:44 | Outpatient (REF) | payer OTHER, SELFPAY ==
--- NOTE | 2025-08-09 11:03 | PFT_ITS ---
Flows: FEV1: 97 % of predicted at 2.45 L FVC: 94 % of predicted at 3.02 L FEV1/FVC: 81 % Bronchodilator response: Absent Volumes: Total lung capacity: 87 % of predicted at 4.47 L Residual volume: 85 % of predicted at 1.44 L Slow vital capacity: 88 % of predicted at 3.02 L Expiratory reserve volume: 44 % of predicted at 0.37 L Diffusion capacity: Normal Impression: No obstructive or restrictive ventilatory defect. No bronchodilator response. Decreased expiratory reserve volume suggests extrathoracic restriction likely secondary to abdominal obesity. MTDD
[2025-08-09 11:39] VITALS: PULSE 69; O2SAT 98
== END ==
LOC: HO.SL 09:44
PROVIDERS: PCP Physician Assistant Medical; Visit Provider Physician Assistant Medical
DX: R53.83 Other fatigue (principal); R06.00 Dyspnea, unspecified; M25.59 Pain in other specified joint; E78.5 Hyperlipidemia, unspecified; I10 Essential (primary) hypertension; G47.8 Other sleep disorders; Z87.891 Personal history of nicotine dependence
CPT/HCPCS: 94010; 94640; 94727; 94729; 95806

== ENCOUNTER → 2025-08-09 11:03 | Outpatient (BNV) | payer OTHER, SELFPAY | PROVIDERS: PCP Physician Assistant Medical; Visit Provider Internal Medicine Pulmonary Disease | DX: G47.33 Obstructive sleep apnea (adult) (pediatric) (principal) | CPT/HCPCS: 95806 ==

== ENCOUNTER 2025-09-04 13:58 | Outpatient (REF) | payer OTHER, SELFPAY | END 2025-09-04 13:59 | disposition home or self-care (01) | LOC: HO.LAB 13:58 | PROVIDERS: PCP Physician Assistant Medical; Visit Provider Nurse Practitioner Family | DX: R31.29 Other microscopic hematuria (principal); F17.201 Nicotine dependence, unspecified, in remission; Z13.89 Encounter for screening for other disorder | CPT/HCPCS: 51798; 81003; 88112; 99202 ==

== ENCOUNTER 2025-09-04 13:58 | Outpatient (AMB) | payer OTHER, SELFPAY ==
--- OUTSIDE RECORDS SUMMARY | 2024-08-30 08:30 | XMS_ITS ---
Author Organization [facility] [address] Address [address] [place] [address] Care Team Providers Care Freelance Court Reporter Name Role Phone ABHILASH JOSUE Unavailable [phone] REASON FOR VISIT 6 week f/u Encounters Encounter Location Date Provider Diagnosis [facility] [address] [place] [address] 08/30/2024 ABHILASH JOSUE Plan Of Treatment No Information Progress Notes * Ailyn GOMEZDOB:1965 ( 60 yo F)Acc No.[id number]:08/30/2024 Patient: Ailyn PETER Provider: Dominguez WU PA-C :1965 A ge:58 Y S ex:Female Date:08/30/2024 Address:[address] [place] [address] Subjective: * Chief Complaints: * 1 . 6 week f/u. * Medical History: Objective: * Vitals: Assessment: Plan: * Treatment: * Images: Billing Information: * Visit Code: * Procedure Codes: * Electronic signature of STEFANY JOSUE PA-C on 09/04/2025 at 05:00 PM EST Sign off status: Pending * Provider: Dominguez WU PA-C Date: Generated for Vy river/Luisa/Cherelle on: 11/04/2024 05:00 PM EST
--- NOTE | 2025-09-04 14:02 | MHC.OFFVIS ---
Intake Visit Reasons: microscopic hematuria Intake Note: Patient is present for microscopice hematuria Urology Medication:none Antibiotic Allergy:none Blood Thinner:none TODAY'S PVR:27ML'S Systems Qa Analyst Required: No Allergies No Known Allergies Allergy (Verified 09/04/25 21:37) Medication List - Last Reconciled 09/04/25 by DARLYN Stovall albuterol sulfate 90 mcg/actuation 2 inhalations inhalation .every 4 hours PRN 30 days celecoxib (Celebrex) 100 mg PO BID PRN cholecalciferol (vitamin D3) 25 mcg PO DAILY lamotrigine 25 mg PO DAILY losartan 25 mg PO DAILY rosuvastatin 10 mg PO BEDTIME venlafaxine ER 150 mg PO DAILY venlafaxine ER 75 mg PO DAILY HPI Comments Details: Ailyn is a very pleasant 60-year-old female patient of Dr. Lopez. She has a past medical history of sleep apnea, micro hematuria, positive TAYE, heart murmur, hypertension, hyperlipidemia, multiple joint pains, depression, anxiety,fatigue, and lumbar radiculopathy. In discussion with the patient today she reports having followed up with her PCP at which time she was noted to have microscopic hematuria and recommendations were made for urology referral for further assessment evaluation. When asked she does report a previous history of nicotine dependence for approximately 10 years. However she quit almost 15 years ago. Patient reports when she was smoking she smoked half a pack to a pack of cigarettes per day. In office urinalysis results reviewed with the patient today. No microscopic hematuria noted. When asked she denies any previous workplace chemical exposure. We did discuss potential causes of microscopic hematuria as well as further workup in risks and benefits of these interventions. When asked she denies any bothersome urinary issues. She denies urinary urgency, urinary frequency, incontinence, nocturia, hematuria, dysuria, foul smelling urine, changes to urinary stream, flank pain, fever, and or chills. She is happy with her current voiding parameters. I discussed reasons for blood in the urine may include but are not limited to kidney stones, cancer in the urinary tract, kidney stone disease or inflammatory conditions of the urinary tract. I have discussed workup to include cystoscopy evaluation. All questions were answered. She discusses her upcoming lumbar ablation with [facility] [employer] [facility] and spine for ongoing back pain. She otherwise offers no other issues or concerns at this time. [facility] Medical History Sleep apnea Microhematuria Positive TAYE (antinuclear antibody) Elevated creatine kinase Heart murmur Essential hypertension Hyperlipidemia Multiple joint pain Dyspnea Depression with anxiety Non-restorative sleep Fatigue Cervicalgia Lumbar radiculopathy Left shoulder pain Chest tightness Surgical History (Updated 05/10/25 @ 13:30 by TAJ Gill) History of back surgery Family History Brother Alcoholism Other Substance abuse Social History (Updated 06/21/25 @ 14:38 by Kelsey Fan MA) Housing: House Alcohol intake: current Patient Tobacco Use Status: Former Tobacco user Cigarette Packs Per Day: 1 Cigarettes Per Day: 10 Years Smoked: 12 e-Cigarette/Vaping Use: Never Used Second Hand Smoke Exposure: No service: No Current occupational status: employed Current occupation: [place] Current occupational exposures/hazards: Yes Cognitive needs: No Hearing needs: No Vision needs: No Review of Systems Const All systems reviewed & are unremarkable except as noted in HPI and below Physical Exam Const General: cooperative, healthy appearing, comfortable, no acute distress, well developed, alert and awake Orientation/consciousness: patient oriented x3 Limitations: no limitations HEENT Head: Yes normal to inspection, Yes normocephalic and Yes atraumatic Ears: hearing grossly normal bilaterally Eyes General: appearance normal, both eyes and all related structures Neck Neck: Yes normal visual inspection and Yes trachea midline Chest Chest palpation & inspection: normal inspection of the chest Resp Effort & Inspection: normal respiratory effort and able to speak in complete sentences Cardio Rate: regular rate GI Inspection: Yes normal to inspection General: Yes no CVA tenderness Back/Spine/Pelvis Back: no CVA tenderness Skin General skin exam: no rashes or lesions noted Neuro General: patient oriented x3 Extrem General: Yes normal to inspection Psych Appearance: grossly normal and well kempt Mental Status: mental status grossly normal Speech and movement: Normal speech and movement present and Clear speech present Affect: normal affect Attitude: cooperative Thought process: Normal thought process present Thought content: Normal thought content present Insight: Fair insight present (Psych) Judgement: Fair judgement present (Psych) Office Procedures Post Void Residual Post Residual Void Post Void Residual (PVR): 27 03197-Iklu Void Residual by ultrasound Results AMB Urinalysis, Automated UA Leukoctes 0 Heather/uL Last Edit by OSMAN Ge on 09/04/25 14:26 UA Nitrite Negative Last Edit by OSMAN Ge on 09/04/25 14:26 UA Urobilinogen 0.2 mg/dL Last Edit by Sue Villanueva CCM on 09/04/25 14:26 UA Protein 0 mg/dL Last Edit by Sue Villanueva [facility] on 09/04/25 14:26 UA pH 7.0 Last Edit by Sue Villanueva [facility] on 09/04/25 14:26 UA Blood 0 Nilson/uL Last Edit [facility] 09/04/25 14:26 UA Specific Cleaton 1.010 Last Edit by Sue Villanueva CCM on 09/04/25 14:26 UA Ketone Negative Last Edit by OSMAN Ge on 09/04/25 14:26 UA Bilirubin 0 mg/dL Last Edit by Sue Villanueva [facility] on 09/04/25 14:26 UA Glucose 0 mg/dL Last Edit by Sue Villanueva [facility] on 09/04/25 14:26 Results Reviewed Results Reviewed: Laboratory Last Values Urine pH (Auto) 7.0 09/04/25 14: Specific Cleaton (Auto) 1.010 09/04/25 14:25 Urine Protein (Auto) 0 mg/dL 09/04/25 14:25 Glucose (UA)(Auto) 0 mg/dL 09/04/25 14:25 Urine Ketones (Auto) Negative 09/04/25 14:25 Urine Blood (Auto) 0 Nilson/uL 09/04/25 14:25 Urine Nitrite (Auto) Negative 09/04/25 14:25 Urine Bilirubin (Auto) 0 mg/dL 09/04/25 14: Urine Urobilinogen (Auto) 0.2 mg/dL 09/04/25 14:25 Leukocyte Esterase (Auto) 0 Heather/uL 09/04/25 14:25 Assessment & Plan Assessment & Plan (1) Microhematuria: Code(s): R31.29 - Other microscopic hematuria Category: Medical (2) Nicotine dependence in remission: Code(s): F17.201 - Nicotine dependence, unspecified, in remission Category: Medical Plan In office urinalysis results reviewed with the patient today as noted above. PVR 27 mL Will send for urine cytology. We did discussed potential causes of microscopic hematuria as well as further workup in risks and benefits of these interventions. She currently denies any bothersome urinary issues or concerns. She reports be happy with current voiding parameters. Will obtain retroperitoneal ultrasound for further assessment evaluation. Follow-up in 3 months with imaging; or sooner with any issues, concerns, and or questions. Orders: Orders AMB Urinalysis Automated Today Z13.9 - Encounter for screening, unspecified Urine Cytology Today R31.29 - Other microscopic hematuria US retroperitoneal comp Today F17.201 - Nicotine dependence, unspecified, in remission, R31.29 - Other microscopic hematuria Patient Instructions: The patient had an opportunity to ask questions regarding the treatment plan. All questions were answered. Physical exam, labs, and imaging were discussed and reviewed in detail. As well as risks, benefits, and discussion of treatment choices. No major barriers to understanding were identified. The patient expressed understanding and agreement with the above treatment plan. The patient was made aware they should contact our office by phone for worsening of their current condition, the appearance of new symptoms, or with any questions or concerns. Compliance is encouraged with any medications and follow up testing that is ordered. It is a privilege to be allowed the opportunity to participate in? your urological care.? Again, if you have any questions or concerns If you have any questions or concerns please do not hesitate to contact me. The office is [phone]. This note is constructed using voice recognition software. While every effort has been made to ensure accuracy ict trainer errors may have been included. Yours sincerely, DARLYN Stovall Coding Level of Care Code New Pt Level 3 (85749) Diagnoses Microhematuria R31.29 Nicotine dependence in remission F17.201 CPT Codes Post Residual Void - PVR CPT Code: 66630-Velz Void Residual by ultrasound ([id number])
--- OUTSIDE RECORDS SUMMARY | 2025-09-04 17:01 | XMS_ITS | Patient Health Record ---
Author Organization [facility] [address] Address [address] [place] [address] Care Team Providers Care Outdoor Adventure Instructor Name Role Phone ABHILASH JOSUE Unavailable [phone] Allergies No Known Allergies Reason For Referral [...] Notes: operatinal asst /Sec. at [facility] operatinal asst /Sec. at [facility] operatinal asst /Sec. at [facility] operatinal asst /Sec. at [facility] operatinal asst /Sec. at [facility] operatinal asst /Sec. at [facility] operatinal asst /Sec. at [facility] operatinal asst /Sec. at [facility] operatinal asst /Sec. at [facility] operatinal asst /Sec. at [facility] operatinal asst /Sec. at [facility] operatinal asst /Sec. at [facility] operatinal asst /Sec. at [facility] Problems Problem Type SNOMED Code ICD Code Onset Dates Problem Status W/U Status Risk Notes Problem Obesity (482794383) Other obesity (E66.8) Active confirmed Problem Hyperlipidaemia (98117734) Hyperlipidemia, unspecified hyperlipidemia type (E78.5) Active confirmed Problem Essential hypertension (81133136) Hypertension, unspecified type (I10) Active confirmed Problem Obesity (112058978) Obesity (BMI 30-39.9) (E66.9) Active confirmed Problem Body mass index 30.00 to 34.99 (343580820342064) Body mass index [BMI] 33.0-33.9, adult (Z68.33) Active confirmed Problem Obese class I (615709524192691) BMI 33.0-33.9,adult (Z68.33) Active confirmed Problem Body mass index 30.00 to 34.99 (200624230347635) BMI 31.0-31.9,adult (Z68.31) Active confirmed Problem Body mass index 30+ - obesity (836883566) BMI 30.0-30.9,adult (Z68.30) Active confirmed Plan Of Treatment No Information Insurance Providers Payer Name Payer Address Payer Phone Subscriber Number Group Number Insured Name Patient Relationship to Insured Coverage Start Date Coverage End Date [facility] [address] [place] [address] [id number] Ailyn Schroeder Self - patient is the insured 2 Medications Administered Medication Instructions Date of Administration Dosage Notes [facility] B[facility]JE[facility] 02/11/2023 lot #[id number] [facility] B12 INJECTION 03/11/2023 [facility] B12 INJECTION 06/14/2023 sema 0 .25mg Semaglutide 05/07/2023 Semaglutide 05/18/2023 0.25 mg Lot #: [id number] Semaglutide 05/24/2023 lot# [id number] 0.25mg Semaglutide 05/31/2023 sema0.25mg Semaglutide 06/07/2023 0.5 mg L tricep SQ Semaglutide 06/21/2023 sema 0.5mg Semaglutide 06/28/2023 sema 0.5mg Semaglutide 07/06/2023 0.5 mg sema 0.5mg Semaglutide 07/12/2023 Semaglutide 07/19/2023 0.5mg sema Semaglutide 07/27/2023 0.5 sema 0.5 Semaglutide 08/03/2023 sema 0.5 Semaglutide 08/10/2023 1 1mg Semaglutide 08/16/2023 1 sema 1mg Semaglutide 08/26/2023 lot#[id number] 1mg Semaglutide 08/30/2023 lot#[id number] 1mg Semaglutide 09/06/2023 1 mg Sema 1mg lot: [id number] Semaglutide 09/13/2023 1 mg Semaglutide 09/20/2023 1 Semaglutide 09/27/2023 1 mg Semaglutide 10/15/2023 1 mg Semaglutide 10/21/2023 1 mg Semaglutide 11/03/2023 1 Semaglutide 11/16/2023 1 mg Medical (General) History Medical History History ICD Code hyperlipidemia hypertension Depression Back pain IBS Surgical History Surgery Date(Month/Year) lower back
--- OUTSIDE RECORDS SUMMARY | 2025-09-04 17:01 | XMS_ITS | Clinical Summary ---
Author Organization [facility] Address [address] [place] [phone] Phone Care Team Providers Care Embossing Clerk Name Role Phone Rosio England MD Primary Care Provider Allergies No known active allergies Medications venlafaxine (EFFEXOR) 50 MG tablet Take 50 mg by mouth 2 (two) times a day. Active losartan (COZAAR) 50 MG tablet Take 50 mg by mouth daily. Active cholecalciferol (VITAMIN D3) 25 MCG (1,000 unit) tablet Take 1,000 Units by mouth daily. Active rosuvastatin (CRESTOR) 10 MG tablet Take 10 mg by mouth daily. Active Active Problems No known active problems Encounters Date Type Department Care Team Description 07/03/2025 11:50 AM EDT Office Visit [facility] [address] [id number] Brenda Tyler, LILIYA Acute pharyngitis, unspecified etiology (Primary Dx) from Last 3 Months Social History Tobacco Use Types Packs/Day Years Used Date Smoking Tobacco: Former Cigarettes Smokeless Tobacco: Never Tobacco Cessation:Counseling Given: Not Answered Education Answer Date Recorded Are you interested in more education? Not on fatuma e 07/03/2025 Are you concerned about learning? Not on file 07/03/2025 No 07/03/2025 No 07/03/2025 Digital Access Answer Date Recorded No 07/03/2025 No 07/03/2025 Reliable internet access at home? Not on file 07/03/2025 Device with a working camera? Not on file Comments No Sex and Gender Information Value Date Recorded Sex Assigned at Not on file Legal Sex Female 11:43 AM EDT Gender Identity Not on file Sexual Orientation Not on file Last Filed Vital Signs Vital Sign Reading Time Taken Comments Blood Pressure 122/81 07/03/2025 11:49 AM EDT Pulse 70 07/03/2025 11:49 AM EDT Temperature - - Respiratory Rate 16 07/03/2025 11:49 AM EDT Oxygen Saturation 97% 07/03/2025 11:49 AM EDT Inhaled Oxygen Concentration - - Weight 81.6 kg (180 lb) 07/03/2025 11:49 AM EDT Height - - Body Mass Index - - Plan of Treatment Health Maintenance Due Date Last Done Comments Adult Td,Tdap Booster 1966 CREATININE LEVEL 1966 LIPID PANEL 1966 POTASSIUM LEVEL 1966 DEPRESSION SCREENING 1978 SMOKING Hx and SMOKELESS TOBACCO SCREENING 1979 HEPATITIS C SCREENING 1984 HIV ONE-TIME SCREENING (18-6 5 YEARS) 1984 PAP SMEAR 1987 MAMMOGRAM 2006 COLOGUARD 2011 COLONOSCOPY 2011 COLORECTAL CANCER SCREENING 2011 FIT TEST 2011 FOBT 2011 SIGMOIDOSCOPY 2011 VIRTUAL COLONOSCOPY 2011 PNEUMOCOCCAL VACCINES (50+ years) (1 of 1 - PCV) 2016 ZOSTER VACCINES (1 of 2) 2016 INFLUENZA VACCINE (#1) 2025 , 08/02/2023, 08/21/2022 COVID-19 VACCINE (1 - 2024-2 6 season) 2025 RSV VACCINE (1 - 1-dose 75+ series) 2041 HEPATITIS A VACCINES Aged Out No long er eligible based on patient's age to complete this topic HIB VACCINES Aged Out No longer eligi ble based on patient's age to complete this topic MENINGOCOCCAL VACCINES (ACWY) Aged Out No longer eligible based on patient's age to complete this topic MENINGOCOCCAL VACCINES (B) Aged Out N o longer eligible based on patient's age to complete this topic Medical Devices Not on file Procedures Procedure Name Priority Date/Time Associated Diagnosis Comments POCT RAPID STREP A Routine 07/03/2025 12 :00 PM EDT Acute pharyngitis, unspecified etiology from Last 3 Months Results * POCT Rapid Strep A (07/03/2025 12:00 PM EDT) Strep A, PCR Not Detected Not Detected C [facility] [place] 07/03/2025 12:0 0 PM EDT 07/03/2025 12:27 PM EDT Brenda Tyler [facility] POCT ENTER/EDIT ORD ERABLES Final Result [facility] [place] [address] [place] [address], [facility] [phone] from Last 3 Months Insurance [employer] NON [place]SP[place] PCP [employer] NON [place] PCP [employer] NON [place] PCP S[employer] NON [place] PCP [employer] Member Subscriber Plan / Payer (Ef fective 2024-Present) Name:Azeem Schroeder Relation to Subscriber:Self Name:Azeem Schroeder Payer ID:[id number] Type:HMO Address: [address] [employer] NON [place]SPG PCP [employer] [facility] NON NSPG PCP [facility] Care Teams Embossing Clerk Relationship Specialty Start Date End Date Rosio England MD PCP - General Internal Medicine 07/03/25 Additional Source Comments The information contained in this document represents components of the legal health record. It is not the complete legal health record.[facility]
== END 2025-09-04 14:36 | disposition home or self-care (01) ==
LOC: HO.HUSH 13:59
PROVIDERS: PCP Physician Assistant Medical; Visit Provider Nurse Practitioner Family
DX: R31.29 Other microscopic hematuria (principal); F17.201 Nicotine dependence, unspecified, in remission; Z13.9 Encounter for screening, unspecified
CPT/HCPCS: 99203